=== PATIENT | female | born 1940 | race Caucasian/White ===

== ENCOUNTER 2018-01-16 08:32 | Emergency (ER) | payer OTHER ==
--- OUTSIDE RECORDS SUMMARY | 2018-01-16 08:34 | XMS REPORT ---
:1940 Author Organization [employer] Care Team Providers Name Role Phone Levin, Na Provider Role Unavailable Allergies No Known Allergies Problems Problem Type Condition Code Onset Dates Condition Status Problem Situational insomnia F51.09 Active Problem Abnormal finding of blood R79.9 Active chemistry, unspecified Problem Calculus of kidney N20.0 Active Problem Microalbuminuria R80.9 Active Problem Hypothyroidism E03.9 Active Problem Hypertension I10 Active Problem Hyperlipidemia, unspecified E78.5 Active Problem Gastro-esophageal reflux disease K21.9 Active without esophagitis Problem Vitamin D deficiency E55.9 Active Problem Anemia D64.9 Active Assessment Hypothyroidism E03.9 Active Assessment Hypertension I10 Active Problem Mixed hyperlipidemia E78.2 Active Problem Impacted cerumen, bilateral H61.23 Active Problem Screening mammogram, encounter for Z12.31 Active Problem Screening for osteoporosis Z13.820 Active Problem Essential hypertriglyceridemia E78.1 Active Medications Medication Code Code Instructions Start End Date Status Dosage System Date Amlodipine [facility] 53287936459 5 MG Active TAKE 1 Besylate TABLET DAILY Levothyroxine [facility] 65144168713 75 MCG Active TAKE 1 Sodium TABLET DAILY Results No Known Results Summary Purpose [employer]Works Submission
[2018-01-16] MEDS ORDERED: ACETAMINOPHEN 325 MG TABLET ONE (09:11)
--- NOTE | 2018-01-16 12:26 | RAD REPORT ---
EXAM DESCRIPTION: RAD - Foot Right 3 View - 01/16/2018 10:08 am CLINICAL HISTORY: Persistent foot pain following trauma COMPARISON: None. FINDINGS: Nondisplaced fracture is present at the base of the fifth metatarsal. There is subtle izzy ical irregularity at the base of the first and second metatarsal bones not sufficient for fracture di agnosis. Patient has a pronounced bunion deformity and valgus angulation of the first MTP joint. Mild valgus angulation at the second- fifth MTP joints. There is an underlying degenerative change very m ild in degree in the midfoot. Patient has a small plantar spur. There is calcification of the Henderson s tendon at the attachment. No air or foreign body in the soft tissues. IMPRESSION: Nondisplaced fracture base of the fifth metatarsal. Slight cortical irregularity base of the first and second metatarsal without definitive fracture. Any fracture at these locations would likely be treated in the course of a fifth metatarsal fracture anish atment.
--- NOTE | 2018-01-16 12:27 | RAD REPORT ---
EXAM DESCRIPTION: RAD - Ankle Right 3 View - 01/16/2018 10:09 am CLINICAL HISTORY: Persistent foot and ankle pain following trauma COMPARISON: October 2016 FINDINGS: No fracture, dislocation or periosteal reaction. No joint effusion seen. No joint space na rrowing. Soft tissue swelling is present around the ankle joint though the patient has a relative pro minence of the soft tissues as a baseline. Small plantar spur is present. No foreign body. IMPRESSION: No fracture or acute finding. No significant change from the comparison.
--- NOTE | 2018-01-16 12:41 | ER ---
Nurse's Notes [facility] Name: Jose Tang Age: 77 yrs Sex: Female : 1940 Arrival Date: 01/16/2018 Time: 08:34 Bed 20 Private MD: Krystle Levin Diagnosis: Fracture of metatarsal bone(s) Presentation: 01/16 08:55 Presenting complaint: Patient states: c/o R ankle pain after reportedly getting R foot ss caught while doing laundry and fell 5 days ago. Pt reports she has been resting the affected extremity and icing it, however pain and swelling have not improved. Transition of care: patient was not received from another setting of care. Onset of symptoms was January 12, 2018. Risk Assessment: Do you want to hurt yourself or someone else? Patient reports no desire to harm self or others. Initial Sepsis Screen: Does the patient meet any 2 criteria? No. Patient's initial sepsis screen is negative. Does the patient have a suspected source of infection? No. Patient's initial sepsis screen is negative. Care prior to arrival: None. 08:55 Method Of Arrival: Ambulatory ss 08:55 Acuity: ISREAL 4 ss Historical: - Allergies: 09:04 No Known Allergies; ss - PMHx: 09:04 Hyperlipidemia; Hypertension; Hypothyroidism; ss - PSHx: 09:04 Hysterectomy; Appendectomy; Cholecystectomy; ss - Immunization history:: Adult Immunizations up to date. - Social history:: Smoking status: Patient/guardian denies using tobacco. - Ebola Screening: : Patient denies exposure to infectious person Patient denies travel to an Ebola-affected area in the 21 days before illness onset. Screenin:59 Abuse screen: Denies threats or abuse. Nutritional screening: No deficits noted. em Tuberculosis screening: No symptoms or risk factors identified. Fall Risk None identified. Assessment: 09:15 General: Appears in no apparent distress. comfortable, Behavior is calm, cooperative. em Pain: Complains of pain in right foot Pain currently is 6 out of 10 on a pain scale. Neuro: Level of Consciousness is awake, alert, obeys commands, Oriented to person, place, time, situation. Cardiovascular: Capillary refill < 3 seconds Patient's skin is warm and dry. Respiratory: Airway is patent Respiratory effort is even, unlabored, Respiratory pattern is regular, symmetrical. GI: Abdomen is Patient currently denies nausea, vomiting. : No signs and/or symptoms were reported regarding the genitourinary system. EENT: No signs and/or symptoms were reported regarding the EENT system. Derm: Skin is intact, Skin is pink, warm \T\ dry. Musculoskeletal: Range of motion: limited in right ankle Swelling present in right foot. 09:15 Injury Description: mechanical trip. em 09:20 General: The previous assessment is accurate, call light remains within reach. . ss 09:30 Reassessment: The previous assessment is accurate, call light remains within reach. ss 10:05 Reassessment: Patient appears in no apparent distress at this time. Patient and/or em family updated on plan of care and expected duration. Pain level reassessed. Patient is alert, oriented x 3, equal unlabored respirations, skin warm/dry/pink. 10:56 Reassessment: Patient appears in no apparent distress at this time. Patient and/or em family updated on plan of care and expected duration. Pain level reassessed. Patient is alert, oriented x 3, equal unlabored respirations, skin warm/dry/pink. rates pain 3/10 Patient states feeling better. 12:04 Reassessment: Patient appears in no apparent distress at this time. Patient and/or em family updated on plan of care and expected duration. Pain level reassessed. Patient is alert, oriented x 3, equal unlabored respirations, skin warm/dry/pink. Vital Signs: 09:04 BP 139 / 70; Pulse 90; Resp 18; Temp 99.0(TE); Pulse Ox 97% ; Weight 52.16 kg; Height 4 ss ft. 11 in. (149.86 cm); Pain 6/10; 10:30 BP 142 / 71; Pulse 78; Resp 16; Pulse Ox 99% on R/A; Pain 3/10; em 12:34 BP 143 / 81; Pulse 76; Resp 16; Pulse Ox 100% on R/A; Pain 3/10; em 09:04 Body Mass Index 23.23 (52.16 kg, 149.86 cm) ED Course: 08:34 Patient arrived in ED. as 08:34 Krystle Levin MD is Private Physician. as 08:49 [facility] 08:49 Jason Painter MD is Attending Physician. [facility] 09:03 Triage completed. ss 09:04 Arm band placed on right wrist. ss 09:06 Hermelindo Baron LVN is Primary Nurse. em 09:15 Patient has correct armband on for positive identification. Bed in low position. Call em light in reach. Adult w/ patient. 09:59 No provider procedures requiring assistance completed. Patient did not have IV access em during this emergency room visit. 10:09 Foot Right 3 View XRAY In Process Unspecified. EDMS 10:09 Ankle Right 3 View XRAY In Process Unspecified. EDMS 12:40 Terry Regan MD is Referral Physician. m 13:00 Orthoglass splint: Posterior short lleg splint applied on right leg. em Administered Medications: 09:11 Drug: Tylenol 650 mg Route: PO; em 12:24 Follow up: Response: No adverse reaction em Outcome: 12:41 Discharge ordered by MD. m 13:22 Discharged to home via wheelchair. em 13:22 Condition: good 13:22 Discharge instructions given to patient, Instructed on discharge instructions, follow up and referral plans. medication usage, Demonstrated understanding of instructions, follow-up care, medications, Prescriptions given X 1. 13:24 Patient left the ED. em Signatures: Dispatcher [employer] EDMS Reynaldo Ramirez PA PA [facility] Hermelindo Baron LVN LVN em Courtney Giraldo Shelby, RN RN ss
--- NOTE | 2018-01-16 12:41 | EDPHYS ---
Physician Documentation [facility] Name: Jose Tang Age: 77 yrs Sex: Female : 1940 Arrival Date: 01/16/2018 Time: 08:34 Bed 20 Private MD: Krystle Levin ED Physician Jason Painter HPI: 01/16 09:06 This 77 yrs old Female presents to ER via Ambulatory with complaints of Foot jmm Injury. 09:06 The patient presents with an injury, pain. Onset: The symptoms/episode began/occurred jmm acutely, 4 day(s) ago. This is 77 year old female that presents to the ED with right foot pain following a fall which occurred 4 days ago. Patient is concerned due to ongoing pain and swelling to the foot. The patient denies other injury. . Historical: - Allergies: 09:04 No Known Allergies; ss - PMHx: 09:04 Hyperlipidemia; Hypertension; Hypothyroidism; ss - PSHx: 09:04 Hysterectomy; Appendectomy; Cholecystectomy; ss - Immunization history:: Adult Immunizations up to date. - Social history:: Smoking status: Patient/guardian denies using tobacco. - Ebola Screening: : Patient denies exposure to infectious person Patient denies travel to an Ebola-affected area in the 21 days before illness onset. ROS: 09:06 Constitutional: Negative for fever, chills, and weight loss, Cardiovascular: Negative jmm for chest pain, palpitations, and edema, Respiratory: Negative for shortness of breath, cough, wheezing, and pleuritic chest pain, Abdomen/GI: Negative for abdominal pain, nausea, vomiting, diarrhea, and constipation. 09:06 Skin: Negative for injury, rash, and discoloration, Neuro: Negative for headache, weakness, numbness, tingling, and seizure. 09:06 MS/extremity: Positive for pain, swelling. 09:06 All other systems are negative. Exam: 09:06 Head/Face: atraumatic. Cardiovascular: Regular rate and rhythm. No edema appreciated jmm Respiratory: Normal respirations, no respiratory distress appreciated Back: Normal ROM 09:06 Constitutional: The patient appears in no acute distress, alert, awake. 09:06 Musculoskeletal/extremity: swelling noted to the right foot, generalized pain on palpation, full dorsalis pedis pulse appreciated. . 09:06 Skin: Appearance: Color: normal in color. 09:06 Neuro: Orientation: is normal, Mentation: is normal, Memory: is normal. 09:06 Psych: Behavior/mood is pleasant, cooperative. Vital Signs: 09:04 BP 139 / 70; Pulse 90; Resp 18; Temp 99.0(TE); Pulse Ox 97% ; Weight 52.16 kg; Height 4 ss ft. 11 in. (149.86 cm); Pain 6/10; 10:30 BP 142 / 71; Pulse 78; Resp 16; Pulse Ox 99% on R/A; Pain 3/10; em 12:34 BP 143 / 81; Pulse 76; Resp 16; Pulse Ox 100% on R/A; Pain 3/10; em 09:04 Body Mass Index 23.23 (52.16 kg, 149.86 cm) ss Procedures: 12:05 Splinting: Splint applied to right ankle and right foot using posterior splint. applied jmm by tech. nurse. Examined by me, post splint application: neurovascular intact, 2+ distal pulses palpable, Patient tolerated well. MDM: 08:51 Patient medically screened. [facility] 11:07 Data reviewed: vital signs, nurses notes. [facility] 12:19 Counseling: I had a detailed discussion with the patient and/or guardian regarding: the [facility] historical points, exam findings, and any diagnostic results supporting the discharge/admit diagnosis, the need for outpatient follow up, to return to the emergency department if symptoms worsen or persist or if there are any questions or concerns that arise at home. 12:37 ED course: Patient advised to not bear weight on the affected foot and given follow up [facility] with orthopedics. . 01/16 09:04 Order name: Foot Right 3 View XRAY; Complete Time: 12:37 [facility] 01/16 09:04 Order name: Ankle Right 3 View XRAY; Complete Time: 12:37 [facility] 01/16 12:03 Order name: Splint - Ankle: Posterior; Complete Time: 13:15 [facility] Administered Medications: 09:11 Drug: Tylenol 650 mg Route: PO; em 12:24 Follow up: Response: No adverse reaction em Disposition: 01/17 06:41 Co-signature as Attending Physician, Jason Painter MD I agree with the assessment and romel plan of care. Disposition: 01/16/18 12:41 Discharged to Home. Impression: Fracture of metatarsal bone(s). - Condition is Stable. - Discharge Instructions: Metatarsal Fracture, Undisplaced. - Prescriptions for Tylenol- Codeine #3 300-30 mg Oral Tablet - take 1 tablet by ORAL route every 6 hours As needed; 12 tablet. - Medication Reconciliation Form, Thank You Letter, Antibiotic Education, Prescription Opioid Use form. - Follow up: Terry Regan MD; When: 1 - 2 days; Reason: Continuance of care. Signatures: Dispatcher [employer] EDJason Sims MD MD cha Mickail, Joel, PA PA Hermelindo Sewell, OUTSIDE OPERATOR OUTSIDE OPERATOR em Karoline Hernandez RN RN ss Corrections: (The following items were deleted from the chart) 01/16 13:15 12:03 Crutches ordered. britton tejada 13:24 12:41 01/16/2018 12:41 Discharged to Home. Impression: Fracture of metatarsal bone(s). em Condition is Stable. Forms are Medication Reconciliation Form, Thank You Letter, Antibiotic Education, Prescription Opioid Use. Follow up: Terry Regan; When: 1 - 2 days; Reason: Continuance of care. britton
== END 2018-01-16 13:24 | disposition home or self-care (01) ==
LOC: ER 08:32
PROC: 2W3QX1Z Immobilization of Right Lower Leg using Splint (ICD-10-PCS; principal; 2018-01-16)
DX: S92.301A Fracture of unspecified metatarsal bone(s), right foot, initial encounter for closed fracture (principal); W18.39XA Other fall on same level, initial encounter; Y93.89 Activity, other specified; Y92.018 Other place in single-family (private) house as the place of occurrence of the external cause; E78.5 Hyperlipidemia, unspecified; I10 Essential (primary) hypertension; E03.9 Hypothyroidism, unspecified
CPT/HCPCS: 99284

== ENCOUNTER → 2023-07-24 | Emergency (ER) | payer OTHER ==
[~2023-07-24] MED LIST: LABETALOL 20 MG/4ML SYRINGE IV ONE; LIDOCAINE 4% PATCH ONE; NA CHLORIDE 0.9% 0 ML ONE; NICARDIPINE HCL 25 MG/10 ML IV ONE; methocarbamoL 500 MG TAB ONE
--- OUTSIDE RECORDS SUMMARY | 2023-07-24 10:46 | XMS REPORT | Continuity of Care Document ---
Author Name Unknown Address [address] [facility] [place] [address] [facility]connect Address [address] [facility] [address] [place] [address] Care Team Providers Care Check Out Clerk Name Role Phone Tao Baltazar Attending Clinician Unavailable Krystle Levin Attending Clinician Unavailable Payers Payer Name Policy Type Policy Number Effective Date Expirati on Date Source [employer] MEDICARE PPO 53 [id number] 2021 00:00:00 [facility] A[employer] MEDICARE PPO 111 [id number] [facility] Problems Condition Name Condition Details Condition Category Status Onset Date Resolution Date Last Treatment Date Treating Clinician Comments Source [id number] Gastroesop hageal reflux disease, unspecifie d whether esophagiti s present Problem [facility] [id number] 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 Problem [facility] Anemia Anemia Problem [facility] Pure hyperglyce ridemia Essential hypertrigl yceridemia Problem [facility] Hypothyroi dism Hypothyroi dism Problem [facility] Vitamin D deficiency Vitamin D deficiency Problem [facility] Hypertensi on White coat syndrome with diagnosis of hypertensi on Problem [facility] Microalbum inuria Microalbum inuria Problem [facility] Gastro-eso phageal reflux disease without esophagiti s Gastro-eso phageal reflux disease without esophagiti s Problem [facility] [id number] Screening mammogram, encounter for Problem [facility] Blood chemistry abnormal Abnormal finding of blood chemistry, unspecifie d Problem [facility] Transient insomnia Situationa l insomnia Problem [facility] [id number] Stage 3b chronic kidney disease Problem [facility] [id number] Rotator cuff arthropath y of right shoulder Problem [facility] [id number] +5th digit eff 04/05/20*CK D (chronic kidney disease), stage III Problem [facility] [id number] Age related osteoporos is, unspecifie d pathologic al fracture presence Problem [facility] [id number] Age-relate d osteoporos is without current pathologic al fracture Problem [facility] Hyperlipid emia Hyperlipid emia, unspecifie d Problem [facility] [id number] Mixed hyperlipid emia Problem [facility] [id number] PAD (periphera l artery disease) Problem [facility] Calculus of kidney Bilateral nephrolith iasis Problem [facility] [id number] Impacted cerumen, bilateral Problem [facility] Screening for osteoporos is Screening for osteoporos is Problem [facility] [id number] Microscopi c hematuria Problem [facility] 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, 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 Problem [facility] [id number] Unsteady gait Problem [facility] [id number] Osteoarthr itis of multiple joints, unspecifie d osteoarthr itis type Problem [facility] Allergies, Adverse Reactions, Alerts Allergy Name Allergy Type Status Severity Reaction(s) Onset Date Inactive Date Treating Clinician Comments Source fluconaz ole fluconaz ole Active rash [facility] Social History Social Habit Start Date Stop Date Quantity Comments Source History of Tobacco Use [facility] Sex Assigned At [facility] Smoking Status Start Date Stop Date Source Never Smoker [facility] Medications Ordered Medication Name Filled Medication Name Start Date Stop Date Current Medication? Ordering Clinician Indication Dosage Frequency Signature (SIG) Comments Components Source Benzonatate 100 MG Benzonatate 100 MG 2020-07 00:00: 00 06-29 00:00 :00 No 1{capsu le_as_n eeded} BID Benzonatat e 100 MG Benzonatate 100 MG Benzonatate 100 MG 2020-07 00:00: 00 06-17 00:00 :00 No 1{capsu le_as_n eeded} TID Benzonatat e 100 MG Levothyroxi ne Sodium Levothyroxi ne Sodium 2017-07 00:00: 00 Yes Na Levin 1 tablet on an empty stomach in the morning [facility] Levothyroxi ne Sodium Levothyroxi ne Sodium Yes Na Levin 1 tablet on an empty stomach in the morning [facility] Lunesta Lunesta Yes Na Levin 1 tablet immediatel y before bedtime [facility] Fish Oil Fish Oil Yes Na Levin 1 capsule [facility] Amlodipine Besylate Amlodipine Besylate Yes Na Levin 1 tablet [facility] Fluconazole Fluconazole Yes Na Levin 1 tablet [facility] Esomeprazol e Magnesium Esomeprazol e Magnesium Yes Na Levin 1 capsule Co mmon [facility] Azithromyci n Azithromyci n Yes Na Levin 2 tablets on the first day, then 1 tablet daily for 4 days [facility] Losartan Potassium Losartan Potassium Yes Na Levin 1 tablet Commo n [facility] Gemfibrozil Gemfibrozil Yes Na Levin TAKE 1 TABLET TWICE DAILY [facility] Amlodipine Besylate Amlodipine Besylate Yes Na Levin TAKE 1 TABLET DAILY [facility] Ergocalcife rol Ergocalcife rol Yes Na Levin 1 tablet [facility] Fosamax Fosamax Yes Na Levin 1 tablet [facility] amLODIPine Besylate 5 MG amLODIPine Besylate 5 MG No QD amLODIPine Besylate 5 MG Fluconazole 150 MG Fluconazole 150 MG No 1{table t} Fluconazol e 150 MG Fluconazole 150 MG Fluconazole 150 MG No 1{table t} Fluconazol e 150 MG Tylenol 325 MG Tylenol 325 MG No 1{table t_as_ne eded} QID Tylenol 325 MG Fish Oil 1000 MG Fish Oil 1000 MG No 1{capsu le} QD Fish Oil 1000 MG Losartan Potassium 25 MG Losartan Potassium 25 MG No 1{table t} QD Losartan Potassium 25 MG Vitamin D3 50 MCG (1999) Vitamin D3 50 MCG (1999) No 1{table t} QD Vitamin D3 50 MCG (1999) Levothyroxi ne Sodium 88 MCG Levothyroxi ne Sodium 88 MCG No Levothyrox ine Sodium 88 MCG Esomeprazol e Magnesium 40 MG Esomeprazol e Magnesium 40 MG No 1{capsu le} QD Esomeprazo le Magnesium 40 MG Licorice (Glycyrrhiz a glabra) 450 MG Licorice (Glycyrrhiz a glabra) 450 MG No BID Licorice (Glycyrrhi za glabra) 450 MG amLODIPine Besylate 5 MG amLODIPine Besylate 5 MG No amLODIPine Besylate 5 MG Esomeprazol e Magnesium 40 MG Esomeprazol e Magnesium 40 MG No 1{capsu le} QD Esomeprazo le Magnesium 40 MG Lunesta 1 MG Lunesta 1 MG No 1{table t_immed iately_ before_ bedtime } QD Lunesta 1 MG Fish Oil 1000 MG Fish Oil 1000 MG No 1{capsu le} QD Fish Oil 1000 MG Azithromyci n 250 MG Azithromyci n 250 MG No QD Azithromyc in 250 MG Fish Oil 1000 MG Fish Oil 1000 MG No 1{capsu le} QD Fish Oil 1000 MG amLODIPine Besylate 5 MG amLODIPine Besylate 5 MG No amLODIPine Besylate 5 MG Alendronate Sodium 70 MG Alendronate Sodium 70 MG No Alendronat e Sodium 70 MG Levothyroxi ne Sodium 88 MCG Levothyroxi ne Sodium 88 MCG No Levothyrox ine Sodium 88 MCG Tylenol 325 MG Tylenol 325 MG No 1{table t_as_ne eded} QID Tylenol 325 MG Gemfibrozil 600 MG Gemfibrozil 600 MG No BID Gemfibrozi l 600 MG Fosamax 70 MG Fosamax 70 MG No 1{table t} Fosamax 70 MG Lunesta 1 MG Lunesta 1 MG No 1{table t_immed iately_ before_ bedtime } QD Lunesta 1 MG Fish Oil 1000 MG Fish Oil 1000 MG No 1{capsu le} QD Fish Oil 1000 MG Fluconazole 150 MG Fluconazole 150 MG No 1{table t} Fluconazol e 150 MG Losartan Potassium 25 MG Losartan Potassium 25 MG No 1{table t} QD Losartan Potassium 25 MG Levothyroxi ne Sodium 75 MCG Levothyroxi ne Sodium 75 MCG No QD Levothyrox ine Sodium 75 MCG Esomeprazol e Magnesium 40 MG Esomeprazol e Magnesium 40 MG No 1{capsu le} QD Esomeprazo le Magnesium 40 MG Esomeprazol e Magnesium 40 MG Esomeprazol e Magnesium 40 MG No 1{capsu le} QD Esomeprazo le Magnesium 40 MG Lunesta 1 MG Lunesta 1 MG No 1{table t_immed iately_ before_ bedtime } QD Lunesta 1 MG Azithromyci n 250 MG Azithromyci n 250 MG No QD Azithromyc in 250 MG Levothyroxi ne Sodium 88 MCG Levothyroxi ne Sodium 88 MCG No QD Levothyrox ine Sodium 88 MCG Licorice (Glycyrrhiz a glabra) 450 MG Licorice (Glycyrrhiz a glabra) 450 MG No BID Licorice (Glycyrrhi za glabra) 450 MG Ergocalcife rol 2000 UNIT Ergocalcife rol 2000 UNIT No 1{table t} QD Ergocalcif [place] 2000 UNIT Fluconazole 150 MG Fluconazole 150 MG No 1{table t} Fluconazol e 150 MG Vitamin D3 50 MCG (1999) Vitamin D3 50 MCG (1999) No 1{table t} QD Vitamin D3 50 MCG (1999) amLODIPine Besylate 5 MG amLODIPine Besylate 5 MG No QD amLODIPine Besylate 5 MG Fish Oil 1000 MG Fish Oil 1000 MG No 1{capsu le} QD Fish Oil 1000 MG amLODIPine Besylate 5 MG amLODIPine Besylate 5 MG No amLODIPine Besylate 5 MG Alendronate Sodium 70 MG Alendronate Sodium 70 MG No Alendronat e Sodium 70 MG Levothyroxi ne Sodium 88 MCG Levothyroxi ne Sodium 88 MCG No Levothyrox ine Sodium 88 MCG Tylenol 325 MG Tylenol 325 MG No 1{table t_as_ne eded} QID Tylenol 325 MG Gemfibrozil 600 MG Gemfibrozil 600 MG No BID Gemfibrozi l 600 MG Fosamax 70 MG Fosamax 70 MG No 1{table t} Fosamax 70 MG Lunesta 1 MG Lunesta 1 MG No 1{table t_immed iately_ before_ bedtime } QD Lunesta 1 MG Fish Oil 1000 MG Fish Oil 1000 MG No 1{capsu le} QD Fish Oil 1000 MG Fluconazole 150 MG Fluconazole 150 MG No 1{table t} Fluconazol e 150 MG Fluconazole 150 MG Fluconazole 150 MG No 1{table t} Fluconazol e 150 MG Losartan Potassium 25 MG Losartan Potassium 25 MG No 1{table t} QD Losartan Potassium 25 MG Levothyroxi ne Sodium 75 MCG Levothyroxi ne Sodium 75 MCG No QD Levothyrox ine Sodium 75 MCG Esomeprazol e Magnesium 40 MG Esomeprazol e Magnesium 40 MG No 1{capsu le} QD Esomeprazo le Magnesium 40 MG Esomeprazol e Magnesium 40 MG Esomeprazol e Magnesium 40 MG No 1{capsu le} QD Esomeprazo le Magnesium 40 MG Lunesta 1 MG Lunesta 1 MG No 1{table t_immed iately_ before_ bedtime } QD Lunesta 1 MG Azithromyci n 250 MG Azithromyci n 250 MG No QD Azithromyc in 250 MG Levothyroxi ne Sodium 88 MCG Levothyroxi ne Sodium 88 MCG No QD Levothyrox ine Sodium 88 MCG Licorice (Glycyrrhiz a glabra) 450 MG Licorice (Glycyrrhiz a glabra) 450 MG No BID Licorice (Glycyrrhi za glabra) 450 MG Ergocalcife rol 2000 UNIT Ergocalcife rol 2000 UNIT No 1{table t} QD Ergocalcif [place] 2000 UNIT Vitamin D3 50 MCG (1999 [place]) Vitamin D3 50 MCG (1999 [place]) No 1{table t} QD Vitamin D3 50 MCG (1999) amLODIPine Besylate 5 MG amLODIPine Besylate 5 MG No QD amLODIPine Besylate 5 MG Gemfibrozil 600 MG Gemfibrozil 600 MG No BID Gemfibrozi l 600 MG Fish Oil 1000 MG Fish Oil 1000 MG No 1{capsu le} QD Fish Oil 1000 MG Lunesta 1 MG Lunesta 1 MG No 1{table t_immed iately_ before_ bedtime } QD Lunesta 1 MG Levothyroxi ne Sodium 75 MCG Levothyroxi ne Sodium 75 MCG No QD Levothyrox ine Sodium 75 MCG Levothyroxi ne Sodium 88 MCG Levothyroxi ne Sodium 88 MCG No Levothyrox ine Sodium 88 MCG Esomeprazol e Magnesium 40 MG Esomeprazol e Magnesium 40 MG No 1{capsu le} QD Esomeprazo le Magnesium 40 MG Licorice (Glycyrrhiz a glabra) 450 MG Licorice (Glycyrrhiz a glabra) 450 MG No BID Licorice (Glycyrrhi za glabra) 450 MG Fluconazole 150 MG Fluconazole 150 MG No 1{table t} Fluconazol e 150 MG Fosamax 70 MG Fosamax 70 MG No 1{table t} Fosamax 70 MG Fish Oil 1000 MG Fish Oil 1000 MG No 1{capsu le} QD Fish Oil 1000 MG Levothyroxi ne Sodium 88 MCG Levothyroxi ne Sodium 88 MCG No QD Levothyrox ine Sodium 88 MCG Losartan Potassium 25 MG Losartan Potassium 25 MG No 1{table t} QD Losartan Potassium 25 MG Vitamin D3 50 MCG (1999) Vitamin D3 50 MCG (1999 [place]) No 1{table t} QD Vitamin D3 50 MCG (1999) amLODIPine Besylate 5 MG amLODIPine Besylate 5 MG No QD amLODIPine Besylate 5 MG Ergocalcife rol 2000 UNIT Ergocalcife rol 2000 UNIT No 1{table t} QD Ergocalcif [place] 2000 UNIT Tylenol 325 MG Tylenol 325 MG No 1{table t_as_ne eded} QID Tylenol 325 MG Esomeprazol e Magnesium 40 MG Esomeprazol e Magnesium 40 MG No 1{capsu le} QD Esomeprazo le Magnesium 40 MG Lunesta 1 MG Lunesta 1 MG No 1{table t_immed iately_ before_ bedtime } QD Lunesta 1 MG Alendronate Sodium 70 MG Alendronate Sodium 70 MG No Alendronat e Sodium 70 MG Fluconazole 150 MG Fluconazole 150 MG No 1{table t} Fluconazol e 150 MG Azithromyci n 250 MG Azithromyci n 250 MG No QD Azithromyc in 250 MG amLODIPine Besylate 5 MG amLODIPine Besylate 5 MG No amLODIPine Besylate 5 MG Fosamax 70 MG Fosamax 70 MG No 1{table t} Fosamax 70 MG Losartan Potassium 25 MG Losartan Potassium 25 MG No 1{table t} QD Losartan Potassium 25 MG Licorice (Glycyrrhiz a glabra) 450 MG Licorice (Glycyrrhiz a glabra) 450 MG No BID Licorice (Glycyrrhi za glabra) 450 MG Azithromyci n 250 MG Azithromyci n 250 MG No QD Azithromyc in 250 MG Fluconazole 150 MG Fluconazole 150 MG No 1{table t} Fluconazol e 150 MG amLODIPine Besylate 5 MG amLODIPine Besylate 5 MG No amLODIPine Besylate 5 MG Fish Oil 1000 MG Fish Oil 1000 MG No 1{capsu le} QD Fish Oil 1000 MG Lunesta 1 MG Lunesta 1 MG No 1{table t_immed iately_ before_ bedtime } QD Lunesta 1 MG Esomeprazol e Magnesium 40 MG Esomeprazol e Magnesium 40 MG No 1{capsu le} QD Esomeprazo le Magnesium 40 MG Alendronate Sodium 70 MG Alendronate Sodium 70 MG No Alendronat e Sodium 70 MG Ergocalcife rol 2000 UNIT Ergocalcife rol 2000 UNIT No 1{table t} QD Ergocalcif [place] 2000 UNIT Fish Oil 1000 MG Fish Oil 1000 MG No 1{capsu le} QD Fish Oil 1000 MG Fluconazole 150 MG Fluconazole 150 MG No 1{table t} Fluconazol e 150 MG Lunesta 1 MG Lunesta 1 MG No 1{table t_immed iately_ before_ bedtime } QD Lunesta 1 MG Esomeprazol e Magnesium 40 MG Esomeprazol e Magnesium 40 MG No 1{capsu le} QD Esomeprazo le Magnesium 40 MG Levothyroxi ne Sodium 75 MCG Levothyroxi ne Sodium 75 MCG No QD Levothyrox ine Sodium 75 MCG Gemfibrozil 600 MG Gemfibrozil 600 MG No BID Gemfibrozi l 600 MG Tylenol 325 MG Tylenol 325 MG No 1{table t_as_ne eded} QID Tylenol 325 MG Levothyroxi ne Sodium 88 MCG Levothyroxi ne Sodium 88 MCG No Levothyrox ine Sodium 88 MCG Levothyroxi ne Sodium 88 MCG Levothyroxi ne Sodium 88 MCG No QD Levothyrox ine Sodium 88 MCG Vitamin D3 50 MCG (1999) Vitamin D3 50 MCG (1999) No 1{table t} QD Vitamin D3 50 MCG (1999) Fosamax 70 MG Fosamax 70 MG No 1{table t} Fosamax 70 MG Losartan Potassium 25 MG Losartan Potassium 25 MG No 1{table t} QD Losartan Potassium 25 MG Licorice (Glycyrrhiz a glabra) 450 MG Licorice (Glycyrrhiz a glabra) 450 MG No BID Licorice (Glycyrrhi za glabra) 450 MG Azithromyci n 250 MG Azithromyci n 250 MG No QD Azithromyc in 250 MG Fluconazole 150 MG Fluconazole 150 MG No 1{table t} Fluconazol e 150 MG amLODIPine Besylate 5 MG amLODIPine Besylate 5 MG No amLODIPine Besylate 5 MG Fish Oil 1000 MG Fish Oil 1000 MG No 1{capsu le} QD Fish Oil 1000 MG Lunesta 1 MG Lunesta 1 MG No 1{table t_immed iately_ before_ bedtime } QD Lunesta 1 MG Esomeprazol e Magnesium 40 MG Esomeprazol e Magnesium 40 MG No 1{capsu le} QD Esomeprazo le Magnesium 40 MG Alendronate Sodium 70 MG Alendronate Sodium 70 MG No Alendronat e Sodium 70 MG Ergocalcife rol 2000 UNIT Ergocalcife rol 2000 UNIT No 1{table t} QD Ergocalcif [place] 2000 UNIT Fish Oil 1000 MG Fish Oil 1000 MG No 1{capsu le} QD Fish Oil 1000 MG Fluconazole 150 MG Fluconazole 150 MG No 1{table t} Fluconazol e 150 MG Lunesta 1 MG Lunesta 1 MG No 1{table t_immed iately_ before_ bedtime } QD Lunesta 1 MG Esomeprazol e Magnesium 40 MG Esomeprazol e Magnesium 40 MG No 1{capsu le} QD Esomeprazo le Magnesium 40 MG Levothyroxi ne Sodium 75 MCG Levothyroxi ne Sodium 75 MCG No QD Levothyrox ine Sodium 75 MCG Gemfibrozil 600 MG Gemfibrozil 600 MG No BID Gemfibrozi l 600 MG Tylenol 325 MG Tylenol 325 MG No 1{table t_as_ne eded} QID Tylenol 325 MG Levothyroxi ne Sodium 88 MCG Levothyroxi ne Sodium 88 MCG No Levothyrox ine Sodium 88 MCG Levothyroxi ne Sodium 88 MCG Levothyroxi ne Sodium 88 MCG No QD Levothyrox ine Sodium 88 MCG Vitamin D3 50 MCG (1999) Vitamin D3 50 MCG (1999) No 1{table t} QD Vitamin D3 50 MCG (1999) Tylenol 325 MG Tylenol 325 MG No 2{table t_as_ne eded} QID Tylenol 325 MG amLODIPine Besylate 5 MG amLODIPine Besylate 5 MG No QD amLODIPine Besylate 5 MG Fish Oil 1000 MG Fish Oil 1000 MG No 1{capsu le} QD Fish Oil 1000 MG Ergocalcife rol 2000 UNIT Ergocalcife rol 2000 UNIT No 1{table t} QD Ergocalcif [place] 2000 UNIT Fish Oil 1000 MG Fish Oil 1000 MG No 1{capsu le} QD Fish Oil 1000 MG Licorice (Glycyrrhiz a glabra) 450 MG Licorice (Glycyrrhiz a glabra) 450 MG No BID Licorice (Glycyrrhi za glabra) 450 MG Levothyroxi ne Sodium 88 MCG Levothyroxi ne Sodium 88 MCG No Levothyrox ine Sodium 88 MCG Losartan Potassium 25 MG Losartan Potassium 25 MG No 1{table t} QD Losartan Potassium 25 MG Azithromyci n 250 MG Azithromyci n 250 MG No QD Azithromyc in 250 MG amLODIPine Besylate 5 MG amLODIPine Besylate 5 MG No amLODIPine Besylate 5 MG Melatonin 1 MG Melatonin 1 MG No 1{capsu le_at_b edtime_ as_need ed} QD Melatonin 1 MG Gemfibrozil 600 MG Gemfibrozil 600 MG No BID Gemfibrozi l 600 MG Lunesta 1 MG Lunesta 1 MG No 1{table t_immed iately_ before_ bedtime } QD Lunesta 1 MG Alendronate Sodium 70 MG Alendronate Sodium 70 MG No Alendronat e Sodium 70 MG Lunesta 1 MG Lunesta 1 MG No 1{table t_immed iately_ before_ bedtime } QD Lunesta 1 MG Fosamax 70 MG Fosamax 70 MG No 1{table t} Fosamax 70 MG Esomeprazol e Magnesium 40 MG Esomeprazol e Magnesium 40 MG No 1{capsu le} QD Esomeprazo le Magnesium 40 MG Vitamin D3 50 MCG (1999) Vitamin D3 50 MCG (1999) No 1{table t} QD Vitamin D3 50 MCG (1999) Esomeprazol e Magnesium 40 MG Esomeprazol e Magnesium 40 MG No 1{capsu le} QD Esomeprazo le Magnesium 40 MG Levothyroxi ne Sodium 75 MCG Levothyroxi ne Sodium 75 MCG No QD Levothyrox ine Sodium 75 MCG Levothyroxi ne Sodium 88 MCG Levothyroxi ne Sodium 88 MCG No QD Levothyrox ine Sodium 88 MCG Fluconazole 150 MG Fluconazole 150 MG No 1{table t} Fluconazol e 150 MG Fluconazole 150 MG Fluconazole 150 MG No 1{table t} Fluconazol e 150 MG Tylenol 325 MG Tylenol 325 MG No 2{table t_as_ne eded} QID Tylenol 325 MG amLODIPine Besylate 5 MG amLODIPine Besylate 5 MG No QD amLODIPine Besylate 5 MG Fish Oil 1000 MG Fish Oil 1000 MG No 1{capsu le} QD Fish Oil 1000 MG Ergocalcife rol 2000 UNIT Ergocalcife rol 2000 UNIT No 1{table t} QD Ergocalcif [place] 2000 UNIT Fish Oil 1000 MG Fish Oil 1000 MG No 1{capsu le} QD Fish Oil 1000 MG Licorice (Glycyrrhiz a glabra) 450 MG Licorice (Glycyrrhiz a glabra) 450 MG No BID Licorice (Glycyrrhi za glabra) 450 MG Levothyroxi ne Sodium 88 MCG Levothyroxi ne Sodium 88 MCG No Levothyrox ine Sodium 88 MCG Losartan Potassium 25 MG Losartan Potassium 25 MG No 1{table t} QD Losartan Potassium 25 MG Azithromyci n 250 MG Azithromyci n 250 MG No QD Azithromyc in 250 MG amLODIPine Besylate 5 MG amLODIPine Besylate 5 MG No amLODIPine Besylate 5 MG Melatonin 1 MG Melatonin 1 MG No 1{capsu le_at_b edtime_ as_need ed} QD Melatonin 1 MG Gemfibrozil 600 MG Gemfibrozil 600 MG No BID Gemfibrozi l 600 MG Lunesta 1 MG Lunesta 1 MG No 1{table t_immed iately_ before_ bedtime } QD Lunesta 1 MG Alendronate Sodium 70 MG Alendronate Sodium 70 MG No Alendronat e Sodium 70 MG Lunesta 1 MG Lunesta 1 MG No 1{table t_immed iately_ before_ bedtime } QD Lunesta 1 MG Fosamax 70 MG Fosamax 70 MG No 1{table t} Fosamax 70 MG Esomeprazol e Magnesium 40 MG Esomeprazol e Magnesium 40 MG No 1{capsu le} QD Esomeprazo le Magnesium 40 MG Vitamin D3 50 MCG (1999) Vitamin D3 50 MCG (1999) No 1{table t} QD Vitamin D3 50 MCG (1999) Esomeprazol e Magnesium 40 MG Esomeprazol e Magnesium 40 MG No 1{capsu le} QD Esomeprazo le Magnesium 40 MG Levothyroxi ne Sodium 75 MCG Levothyroxi ne Sodium 75 MCG No QD Levothyrox ine Sodium 75 MCG Levothyroxi ne Sodium 88 MCG Levothyroxi ne Sodium 88 MCG No QD Levothyrox ine Sodium 88 MCG Fluconazole 150 MG Fluconazole 150 MG No 1{table t} Fluconazol e 150 MG Fluconazole 150 MG Fluconazole 150 MG No 1{table t} Fluconazol e 150 MG Azithromyci n 250 MG Azithromyci n 250 MG No QD Azithromyc in 250 MG Losartan Potassium 25 MG Losartan Potassium 25 MG No 1{table t} QD Losartan Potassium 25 MG Melatonin 1 MG Melatonin 1 MG No 1{capsu le_at_b edtime_ as_need ed} QD Melatonin 1 MG Esomeprazol e Magnesium 40 MG Esomeprazol e Magnesium 40 MG No 1{capsu le} QD Esomeprazo le Magnesium 40 MG amLODIPine Besylate 5 MG amLODIPine Besylate 5 MG No amLODIPine Besylate 5 MG Fosamax 70 MG Fosamax 70 MG No 1{table t} Fosamax 70 MG Levothyroxi ne Sodium 75 MCG Levothyroxi ne Sodium 75 MCG No QD Levothyrox ine Sodium 75 MCG Alendronate Sodium 70 MG Alendronate Sodium 70 MG No Alendronat e Sodium 70 MG Vitamin D3 50 MCG (1999) Vitamin D3 50 MCG (1999) No 1{table t} QD Vitamin D3 50 MCG (1999) Ergocalcife rol 2000 UNIT Ergocalcife rol 2000 UNIT No 1{table t} QD Ergocalcif [place] 2000 UNIT Levothyroxi ne Sodium 88 MCG Levothyroxi ne Sodium 88 MCG No QD Levothyrox ine Sodium 88 MCG Licorice (Glycyrrhiz a glabra) 450 MG Licorice (Glycyrrhiz a glabra) 450 MG No BID Licorice (Glycyrrhi za glabra) 450 MG Fish Oil 1000 MG Fish Oil 1000 MG No 1{capsu le} QD Fish Oil 1000 MG Lunesta 1 MG Lunesta 1 MG No 1{table t_immed iately_ before_ bedtime } QD Lunesta 1 MG amLODIPine Besylate 5 MG amLODIPine Besylate 5 MG No QD amLODIPine Besylate 5 MG Levothyroxi ne Sodium 88 MCG Levothyroxi ne Sodium 88 MCG No Levothyrox ine Sodium 88 MCG Gemfibrozil 600 MG Gemfibrozil 600 MG No BID Gemfibrozi l 600 MG Esomeprazol e Magnesium 40 MG Esomeprazol e Magnesium 40 MG No 1{capsu le} QD Esomeprazo le Magnesium 40 MG Fish Oil 1000 MG Fish Oil 1000 MG No 1{capsu le} QD Fish Oil 1000 MG Fluconazole 150 MG Fluconazole 150 MG No 1{table t} Fluconazol e 150 MG Fluconazole 150 MG Fluconazole 150 MG No 1{table t} Fluconazol e 150 MG Lunesta 1 MG Lunesta 1 MG No 1{table t_immed iately_ before_ bedtime } QD Lunesta 1 MG Tylenol 325 MG Tylenol 325 MG No 2{table t_as_ne eded} QID Tylenol 325 MG Azithromyci n 250 MG Azithromyci n 250 MG No QD Azithromyc in 250 MG Losartan Potassium 25 MG Losartan Potassium 25 MG No 1{table t} QD Losartan Potassium 25 MG Melatonin 1 MG Melatonin 1 MG No 1{capsu le_at_b edtime_ as_need ed} QD Melatonin 1 MG Esomeprazol e Magnesium 40 MG Esomeprazol e Magnesium 40 MG No 1{capsu le} QD Esomeprazo le Magnesium 40 MG amLODIPine Besylate 5 MG amLODIPine Besylate 5 MG No amLODIPine Besylate 5 MG Fosamax 70 MG Fosamax 70 MG No 1{table t} Fosamax 70 MG Levothyroxi ne Sodium 75 MCG Levothyroxi ne Sodium 75 MCG No QD Levothyrox ine Sodium 75 MCG Alendronate Sodium 70 MG Alendronate Sodium 70 MG No Alendronat e Sodium 70 MG Vitamin D3 50 MCG (1999) Vitamin D3 50 MCG (1999) No 1{table t} QD Vitamin D3 50 MCG (1999) Ergocalcife rol 2000 UNIT Ergocalcife rol 2000 UNIT No 1{table t} QD Ergocalcif [place] 2000 UNIT Levothyroxi ne Sodium 88 MCG Levothyroxi ne Sodium 88 MCG No QD Levothyrox ine Sodium 88 MCG Licorice (Glycyrrhiz a glabra) 450 MG Licorice (Glycyrrhiz a glabra) 450 MG No BID Licorice (Glycyrrhi za glabra) 450 MG Fish Oil 1000 MG Fish Oil 1000 MG No 1{capsu le} QD Fish Oil 1000 MG Lunesta 1 MG Lunesta 1 MG No 1{table t_immed iately_ before_ bedtime } QD Lunesta 1 MG amLODIPine Besylate 5 MG amLODIPine Besylate 5 MG No QD amLODIPine Besylate 5 MG Levothyroxi ne Sodium 88 MCG Levothyroxi ne Sodium 88 MCG No Levothyrox ine Sodium 88 MCG Gemfibrozil 600 MG Gemfibrozil 600 MG No BID Gemfibrozi l 600 MG Esomeprazol e Magnesium 40 MG Esomeprazol e Magnesium 40 MG No 1{capsu le} QD Esomeprazo le Magnesium 40 MG Fish Oil 1000 MG Fish Oil 1000 MG No 1{capsu le} QD Fish Oil 1000 MG Fluconazole 150 MG Fluconazole 150 MG No 1{table t} Fluconazol e 150 MG Fluconazole 150 MG Fluconazole 150 MG No 1{table t} Fluconazol e 150 MG Lunesta 1 MG Lunesta 1 MG No 1{table t_immed iately_ before_ bedtime } QD Lunesta 1 MG Tylenol 325 MG Tylenol 325 MG No 2{table t_as_ne eded} QID Tylenol 325 MG Azithromyci n 250 MG Azithromyci n 250 MG No QD Azithromyc in 250 MG Levothyroxi ne Sodium 88 MCG Levothyroxi ne Sodium 88 MCG No Levothyrox ine Sodium 88 MCG Esomeprazol e Magnesium 40 MG Esomeprazol e Magnesium 40 MG No 1{capsu le} QD Esomeprazo le Magnesium 40 MG Fish Oil 1000 MG Fish Oil 1000 MG No 1{capsu le} QD Fish Oil 1000 MG Fosamax 70 MG Fosamax 70 MG No 1{table t} Fosamax 70 MG Lunesta 1 MG Lunesta 1 MG No 1{table t_immed iately_ before_ bedtime } QD Lunesta 1 MG Alendronate Sodium 70 MG Alendronate Sodium 70 MG No Alendronat e Sodium 70 MG Ergocalcife rol 2000 UNIT Ergocalcife rol 2000 UNIT No 1{table t} QD Ergocalcif louis 2000 UNIT Levothyroxi ne Sodium 75 MCG Levothyroxi ne Sodium 75 MCG No QD Levothyrox ine Sodium 75 MCG Vitamin D3 50 MCG (1999) Vitamin D3 50 MCG (1999) No 1{table t} QD Vitamin D3 50 MCG (1999) Esomeprazol e Magnesium 40 MG Esomeprazol e Magnesium 40 MG No 1{capsu le} QD Esomeprazo le Magnesium 40 MG Licorice (Glycyrrhiz a glabra) 450 MG Licorice (Glycyrrhiz a glabra) 450 MG No BID Licorice (Glycyrrhi za glabra) 450 MG Lunesta 1 MG Lunesta 1 MG No 1{table t_immed iately_ before_ bedtime } QD Lunesta 1 MG Tylenol 325 MG Tylenol 325 MG No 2{table t_as_ne eded} QID Tylenol 325 MG Fluconazole 150 MG Fluconazole 150 MG No 1{table t} Fluconazol e 150 MG amLODIPine Besylate 5 MG amLODIPine Besylate 5 MG No amLODIPine Besylate 5 MG amLODIPine Besylate 5 MG amLODIPine Besylate 5 MG No QD amLODIPine Besylate 5 MG Fish Oil 1000 MG Fish Oil 1000 MG No 1{capsu le} QD Fish Oil 1000 MG Melatonin 1 MG Melatonin 1 MG No 1{capsu le_at_b edtime_ as_need ed} QD Melatonin 1 MG Fluconazole 150 MG Fluconazole 150 MG No 1{table t} Fluconazol e 150 MG Gemfibrozil 600 MG Gemfibrozil 600 MG No BID Gemfibrozi l 600 MG Losartan Potassium 25 MG Losartan Potassium 25 MG No 1{table t} QD Losartan Potassium 25 MG Fosamax 70 MG Fosamax 70 MG No 1{table t} Fosamax 70 MG Azithromyci n 250 MG Azithromyci n 250 MG No QD Azithromyc in 250 MG Alendronate Sodium 70 MG Alendronate Sodium 70 MG No Alendronat e Sodium 70 MG Licorice (Glycyrrhiz a glabra) 450 MG Licorice (Glycyrrhiz a glabra) 450 MG No BID Licorice (Glycyrrhi za glabra) 450 MG Esomeprazol e Magnesium 40 MG Esomeprazol e Magnesium 40 MG No 1{capsu le} QD Esomeprazo le Magnesium 40 MG Lunesta 1 MG Lunesta 1 MG No 1{table t_immed iately_ before_ bedtime } QD Lunesta 1 MG Fish Oil 1000 MG Fish Oil 1000 MG No 1{capsu le} QD Fish Oil 1000 MG Ergocalcife rol 2000 UNIT Ergocalcife rol 2000 UNIT No 1{table t} QD Ergocalcif louis 2000 UNIT Levothyroxi ne Sodium 75 MCG Levothyroxi ne Sodium 75 MCG No QD Levothyrox ine Sodium 75 MCG Vitamin D3 50 MCG (1999) Vitamin D3 50 MCG (1999) No 1{table t} QD Vitamin D3 50 MCG (1999) Tylenol 325 MG Tylenol 325 MG No 2{table t_as_ne eded} QID Tylenol 325 MG Esomeprazol e Magnesium 40 MG Esomeprazol e Magnesium 40 MG No 1{capsu le} QD Esomeprazo le Magnesium 40 MG Lunesta 1 MG Lunesta 1 MG No 1{table t_immed iately_ before_ bedtime } QD Lunesta 1 MG amLODIPine Besylate 5 MG amLODIPine Besylate 5 MG No amLODIPine Besylate 5 MG Melatonin 1 MG Melatonin 1 MG No 1{capsu le_at_b edtime_ as_need ed} QD Melatonin 1 MG Fish Oil 1000 MG Fish Oil 1000 MG No 1{capsu le} QD Fish Oil 1000 MG Losartan Potassium 25 MG Losartan Potassium 25 MG No 1{table t} QD Losartan Potassium 25 MG Fluconazole 150 MG Fluconazole 150 MG No 1{table t} Fluconazol e 150 MG Fluconazole 150 MG Fluconazole 150 MG No 1{table t} Fluconazol e 150 MG Gemfibrozil 600 MG Gemfibrozil 600 MG No BID Gemfibrozi l 600 MG Levothyroxi ne Sodium 88 MCG Levothyroxi ne Sodium 88 MCG No Levothyrox ine Sodium 88 MCG Levothyroxi ne Sodium 88 MCG Levothyroxi ne Sodium 88 MCG No QD Levothyrox ine Sodium 88 MCG Sodium Bicarbonate 650 MG Sodium Bicarbonate 650 MG No Sodium Bicarbonat e 650 MG Fish Oil 1000 MG Fish Oil 1000 MG No 1{capsu le} QD Fish Oil 1000 MG Vitamin D3 50 MCG (1999) Vitamin D3 50 MCG (1999) No 1{table t} QD Vitamin D3 50 MCG (1999) Ezetimibe 10 MG Ezetimibe 10 MG No Ezetimibe 10 MG amLODIPine Besylate 5 MG amLODIPine Besylate 5 MG No amLODIPine Besylate 5 MG amLODIPine Besylate 5 MG amLODIPine Besylate 5 MG No 1{table t} QD amLODIPine Besylate 5 MG Esomeprazol e Magnesium 40 MG Esomeprazol e Magnesium 40 MG No 1{capsu le} QD Esomeprazo le Magnesium 40 MG Levothyroxi ne Sodium 50 MCG Levothyroxi ne Sodium 50 MCG No QD Levothyrox ine Sodium 50 MCG Levothyroxi ne Sodium 88 MCG Levothyroxi ne Sodium 88 MCG No QD Levothyrox ine Sodium 88 MCG Sodium Bicarbonate 650 MG Sodium Bicarbonate 650 MG No Sodium Bicarbonat e 650 MG Fish Oil 1000 MG Fish Oil 1000 MG No 1{capsu le} QD Fish Oil 1000 MG Vitamin D3 50 MCG (1999) Vitamin D3 50 MCG (1999) No 1{table t} QD Vitamin D3 50 MCG (1999) Ezetimibe 10 MG Ezetimibe 10 MG No Ezetimibe 10 MG amLODIPine Besylate 5 MG amLODIPine Besylate 5 MG No amLODIPine Besylate 5 MG amLODIPine Besylate 5 MG amLODIPine Besylate 5 MG No 1{table t} QD amLODIPine Besylate 5 MG Esomeprazol e Magnesium 40 MG Esomeprazol e Magnesium 40 MG No 1{capsu le} QD Esomeprazo le Magnesium 40 MG Levothyroxi ne Sodium 50 MCG Levothyroxi ne Sodium 50 MCG No QD Levothyrox ine Sodium 50 MCG Levothyroxi ne Sodium 88 MCG Levothyroxi ne Sodium 88 MCG No QD Levothyrox ine Sodium 88 MCG Sodium Bicarbonate 650 MG Sodium Bicarbonate 650 MG No Sodium Bicarbonat e 650 MG Fish Oil 1000 MG Fish Oil 1000 MG No 1{capsu le} QD Fish Oil 1000 MG Vitamin D3 50 MCG (1999) Vitamin D3 50 MCG (1999) No 1{table t} QD Vitamin D3 50 MCG (1999) Ezetimibe 10 MG Ezetimibe 10 MG No Ezetimibe 10 MG amLODIPine Besylate 5 MG amLODIPine Besylate 5 MG No amLODIPine Besylate 5 MG amLODIPine Besylate 5 MG amLODIPine Besylate 5 MG No 1{table t} QD amLODIPine Besylate 5 MG Esomeprazol e Magnesium 40 MG Esomeprazol e Magnesium 40 MG No 1{capsu le} QD Esomeprazo le Magnesium 40 MG Levothyroxi ne Sodium 50 MCG Levothyroxi ne Sodium 50 MCG No QD Levothyrox ine Sodium 50 MCG Levothyroxi ne Sodium 88 MCG Levothyroxi ne Sodium 88 MCG No QD Levothyrox ine Sodium 88 MCG Sodium Bicarbonate 650 MG Sodium Bicarbonate 650 MG No Sodium Bicarbonat e 650 MG Fish Oil 1000 MG Fish Oil 1000 MG No 1{capsu le} QD Fish Oil 1000 MG Vitamin D3 50 MCG (1999) Vitamin D3 50 MCG (1999) No 1{table t} QD Vitamin D3 50 MCG (1999) Ezetimibe 10 MG Ezetimibe 10 MG No Ezetimibe 10 MG amLODIPine Besylate 5 MG amLODIPine Besylate 5 MG No amLODIPine Besylate 5 MG amLODIPine Besylate 5 MG amLODIPine Besylate 5 MG No 1{table t} QD amLODIPine Besylate 5 MG Esomeprazol e Magnesium 40 MG Esomeprazol e Magnesium 40 MG No 1{capsu le} QD Esomeprazo le Magnesium 40 MG Levothyroxi ne Sodium 50 MCG Levothyroxi ne Sodium 50 MCG No QD Levothyrox ine Sodium 50 MCG Levothyroxi ne Sodium 88 MCG Levothyroxi ne Sodium 88 MCG No QD Levothyrox ine Sodium 88 MCG Sodium Bicarbonate 650 MG Sodium Bicarbonate 650 MG No Sodium Bicarbonat e 650 MG Fish Oil 1000 MG Fish Oil 1000 MG No 1{capsu le} QD Fish Oil 1000 MG Vitamin D3 50 MCG (1999) Vitamin D3 50 MCG (1999) No 1{table t} QD Vitamin D3 50 MCG (1999) Ezetimibe 10 MG Ezetimibe 10 MG No Ezetimibe 10 MG amLODIPine Besylate 5 MG amLODIPine Besylate 5 MG No amLODIPine Besylate 5 MG amLODIPine Besylate 5 MG amLODIPine Besylate 5 MG No 1{table t} QD amLODIPine Besylate 5 MG Esomeprazol e Magnesium 40 MG Esomeprazol e Magnesium 40 MG No 1{capsu le} QD Esomeprazo le Magnesium 40 MG Levothyroxi ne Sodium 50 MCG Levothyroxi ne Sodium 50 MCG No QD Levothyrox ine Sodium 50 MCG Sodium Bicarbonate 650 MG Sodium Bicarbonate 650 MG No Sodium Bicarbonat e 650 MG Ezetimibe 10 MG Ezetimibe 10 MG No Ezetimibe 10 MG Vitamin D3 50 MCG (1999) Vitamin D3 50 MCG (1999) No 1{table t} QD Vitamin D3 50 MCG (1999) Levothyroxi ne Sodium 88 MCG Levothyroxi ne Sodium 88 MCG No QD Levothyrox ine Sodium 88 MCG Levothyroxi ne Sodium 50 MCG Levothyroxi ne Sodium 50 MCG No QD Levothyrox ine Sodium 50 MCG Esomeprazol e Magnesium 40 MG Esomeprazol e Magnesium 40 MG No 1{capsu le} QD Esomeprazo le Magnesium 40 MG Fish Oil 1000 MG Fish Oil 1000 MG No 1{capsu le} QD Fish Oil 1000 MG amLODIPine Besylate 5 MG amLODIPine Besylate 5 MG No amLODIPine Besylate 5 MG amLODIPine Besylate 5 MG amLODIPine Besylate 5 MG No 1{table t} QD amLODIPine Besylate 5 MG Sodium Bicarbonate 650 MG Sodium Bicarbonate 650 MG No Sodium Bicarbonat e 650 MG Ezetimibe 10 MG Ezetimibe 10 MG No Ezetimibe 10 MG Vitamin D3 50 MCG (1999) Vitamin D3 50 MCG (1999) No 1{table t} QD Vitamin D3 50 MCG (1999) Levothyroxi ne Sodium 88 MCG Levothyroxi ne Sodium 88 MCG No QD Levothyrox ine Sodium 88 MCG Levothyroxi ne Sodium 50 MCG Levothyroxi ne Sodium 50 MCG No QD Levothyrox ine Sodium 50 MCG Esomeprazol e Magnesium 40 MG Esomeprazol e Magnesium 40 MG No 1{capsu le} QD Esomeprazo le Magnesium 40 MG Fish Oil 1000 MG Fish Oil 1000 MG No 1{capsu le} QD Fish Oil 1000 MG amLODIPine Besylate 5 MG amLODIPine Besylate 5 MG No amLODIPine Besylate 5 MG amLODIPine Besylate 5 MG amLODIPine Besylate 5 MG No 1{table t} QD amLODIPine Besylate 5 MG Sodium Bicarbonate 650 MG Sodium Bicarbonate 650 MG No Sodium Bicarbonat e 650 MG Ezetimibe 10 MG Ezetimibe 10 MG No Ezetimibe 10 MG Vitamin D3 50 MCG (1999) Vitamin D3 50 MCG (1999) No 1{table t} QD Vitamin D3 50 MCG (1999) Levothyroxi ne Sodium 88 MCG Levothyroxi ne Sodium 88 MCG No QD Levothyrox ine Sodium 88 MCG Levothyroxi ne Sodium 50 MCG Levothyroxi ne Sodium 50 MCG No QD Levothyrox ine Sodium 50 MCG Esomeprazol e Magnesium 40 MG Esomeprazol e Magnesium 40 MG No 1{capsu le} QD Esomeprazo le Magnesium 40 MG Fish Oil 1000 MG Fish Oil 1000 MG No 1{capsu le} QD Fish Oil 1000 MG amLODIPine Besylate 5 MG amLODIPine Besylate 5 MG No amLODIPine Besylate 5 MG amLODIPine Besylate 5 MG amLODIPine Besylate 5 MG No 1{table t} QD amLODIPine Besylate 5 MG Sodium Bicarbonate 650 MG Sodium Bicarbonate 650 MG No Sodium Bicarbonat e 650 MG Levothyroxi ne Sodium 50 MCG Levothyroxi ne Sodium 50 MCG No QD Levothyrox ine Sodium 50 MCG Vitamin D3 50 MCG (1999) Vitamin D3 50 MCG (1999) No 1{table t} QD Vitamin D3 50 MCG (1999) Ezetimibe 10 MG Ezetimibe 10 MG No Ezetimibe 10 MG Esomeprazol e Magnesium 40 MG Esomeprazol e Magnesium 40 MG No 1{capsu le} QD Esomeprazo le Magnesium 40 MG Fish Oil 1000 MG Fish Oil 1000 MG No 1{capsu le} QD Fish Oil 1000 MG amLODIPine Besylate 5 MG amLODIPine Besylate 5 MG No amLODIPine Besylate 5 MG Levothyroxi ne Sodium 88 MCG Levothyroxi ne Sodium 88 MCG No Levothyrox ine Sodium 88 MCG Sodium Bicarbonate 650 MG Sodium Bicarbonate 650 MG No Sodium Bicarbonat e 650 MG Levothyroxi ne Sodium 50 MCG Levothyroxi ne Sodium 50 MCG No QD Levothyrox ine Sodium 50 MCG Vitamin D3 50 MCG (1999) Vitamin D3 50 MCG (1999) No 1{table t} QD Vitamin D3 50 MCG (1999) Ezetimibe 10 MG Ezetimibe 10 MG No Ezetimibe 10 MG Esomeprazol e Magnesium 40 MG Esomeprazol e Magnesium 40 MG No 1{capsu le} QD Esomeprazo le Magnesium 40 MG Fish Oil 1000 MG Fish Oil 1000 MG No 1{capsu le} QD Fish Oil 1000 MG amLODIPine Besylate 5 MG amLODIPine Besylate 5 MG No amLODIPine Besylate 5 MG Levothyroxi ne Sodium 88 MCG Levothyroxi ne Sodium 88 MCG No Levothyrox ine Sodium 88 MCG Sodium Bicarbonate 650 MG Sodium Bicarbonate 650 MG No Sodium Bicarbonat e 650 MG Ezetimibe 10 MG Ezetimibe 10 MG No Ezetimibe 10 MG Vitamin D3 50 MCG (1999) Vitamin D3 50 MCG (1999) No 1{table t} QD Vitamin D3 50 MCG (1999) Levothyroxi ne Sodium 88 MCG Levothyroxi ne Sodium 88 MCG No Levothyrox ine Sodium 88 MCG Lunesta 1 MG Lunesta 1 MG No 1{table t_immed iately_ before_ bedtime } QD Lunesta 1 MG Esomeprazol e Magnesium 40 MG Esomeprazol e Magnesium 40 MG No 1{capsu le} QD Esomeprazo le Magnesium 40 MG Fish Oil 1000 MG Fish Oil 1000 MG No 1{capsu le} QD Fish Oil 1000 MG amLODIPine Besylate 5 MG amLODIPine Besylate 5 MG No amLODIPine Besylate 5 MG Levothyroxi ne Sodium 50 MCG Levothyroxi ne Sodium 50 MCG No Levothyrox ine Sodium 50 MCG Levothyroxi ne Sodium 75 MCG Levothyroxi ne Sodium 75 MCG No QD Levothyrox ine Sodium 75 MCG Ergocalcife rol 2000 UNIT Ergocalcife rol 2000 UNIT No 1{table t} QD Ergocalcif [place] 2000 UNIT Fosamax 70 MG Fosamax 70 MG No 1{table t} Fosamax 70 MG Levothyroxi ne Sodium 88 MCG Levothyroxi ne Sodium 88 MCG No QD Levothyrox ine Sodium 88 MCG Gemfibrozil 600 MG Gemfibrozil 600 MG No BID Gemfibrozi l 600 MG Alendronate Sodium 70 MG Alendronate Sodium 70 MG No Alendronat e Sodium 70 MG amLODIPine Besylate 5 MG amLODIPine Besylate 5 MG No QD amLODIPine Besylate 5 MG Fluconazole 150 MG Fluconazole 150 MG No 1{table t} Fluconazol e 150 MG Fluconazole 150 MG Fluconazole 150 MG No 1{table t} Fluconazol e 150 MG Tylenol 325 MG Tylenol 325 MG No 1{table t_as_ne eded} QID Tylenol 325 MG Fish Oil 1000 MG Fish Oil 1000 MG No 1{capsu le} QD Fish Oil 1000 MG Losartan Potassium 25 MG Losartan Potassium 25 MG No 1{table t} QD Losartan Potassium 25 MG Vitamin D3 50 MCG (1999) Vitamin D3 50 MCG (1999) No 1{table t} QD Vitamin D3 50 MCG (1999) Levothyroxi ne Sodium 88 MCG Levothyroxi ne Sodium 88 MCG No Levothyrox ine Sodium 88 MCG Esomeprazol e Magnesium 40 MG Esomeprazol e Magnesium 40 MG No 1{capsu le} QD Esomeprazo le Magnesium 40 MG Licorice (Glycyrrhiz a glabra) 450 MG Licorice (Glycyrrhiz a glabra) 450 MG No BID Licorice (Glycyrrhi za glabra) 450 MG amLODIPine Besylate 5 MG amLODIPine Besylate 5 MG No amLODIPine Besylate 5 MG Esomeprazol e Magnesium 40 MG Esomeprazol e Magnesium 40 MG No 1{capsu le} QD Esomeprazo le Magnesium 40 MG Lunesta 1 MG Lunesta 1 MG No 1{table t_immed iately_ before_ bedtime } QD Lunesta 1 MG Fish Oil 1000 MG Fish Oil 1000 MG No 1{capsu le} QD Fish Oil 1000 MG Azithromyci n 250 MG Azithromyci n 250 MG No QD Azithromyc in 250 MG Lunesta 1 MG Lunesta 1 MG No 1{table t_immed iately_ before_ bedtime } QD Lunesta 1 MG Levothyroxi ne Sodium 75 MCG Levothyroxi ne Sodium 75 MCG No QD Levothyrox ine Sodium 75 MCG Ergocalcife rol 2000 UNIT Ergocalcife rol 2000 UNIT No 1{table t} QD Ergocalcif [place] 2000 UNIT Fosamax 70 MG Fosamax 70 MG No 1{table t} Fosamax 70 MG Levothyroxi ne Sodium 88 MCG Levothyroxi ne Sodium 88 MCG No QD Levothyrox ine Sodium 88 MCG Gemfibrozil 600 MG Gemfibrozil 600 MG No BID Gemfibrozi l 600 MG Alendronate Sodium 70 MG Alendronate Sodium 70 MG No Alendronat e Sodium 70 MG Immunizations Ordered Immunization Name Filled Immunization Name Date Status Comments Source COVID-19 Vaccine (Serg) COVID-19 Vaccine (Serg) 2021-03-18 13:14:00 Completed [facility] COVID-19 Vaccine (Serg) COVID-19 Vaccine (Serg) 2021-03-18 13:14:00 Completed [facility] COVID-19 Vaccine (Serg) COVID-19 Vaccine (Serg) 2021-03-18 13:14:00 Completed [facility] COVID-19 Vaccine (Serg) COVID-19 Vaccine (Serg) 2021-03-18 13:14:00 Completed [facility] COVID-19 Vaccine (Serg) COVID-19 Vaccine (Serg) 2021-03-18 13:14:00 Completed [facility] COVID-19 Vaccine (Serg) COVID-19 Vaccine (Serg) 2021-03-18 13:14:00 Completed [facility] COVID-19 Vaccine (Serg) COVID-19 Vaccine (Serg) 2021-03-18 13:14:00 Completed [facility] COVID-19 Vaccine (Serg) COVID-19 Vaccine (Serg) 2021-03-18 13:14:00 Completed [facility] COVID-19 Vaccine (Serg) COVID-19 Vaccine (Serg) 2021-03-18 13:14:00 Completed [facility] COVID-19 Vaccine (Serg) COVID-19 Vaccine (Serg) 2021-03-18 13:14:00 Completed [facility] COVID-19 Vaccine (Serg) COVID-19 Vaccine (Serg) 2021-03-18 13:14:00 Completed [facility] COVID-19 Vaccine (Serg) COVID-19 Vaccine (Serg) 2021-03-18 13:14:00 Completed [facility] COVID-19 Vaccine (Serg) COVID-19 Vaccine (Serg) 2021-03-18 13:14:00 Completed [facility] COVID-19 Vaccine (Serg) COVID-19 Vaccine (Serg) Unknown Completed [facility] COVID-19 Vaccine (Serg) COVID-19 Vaccine (Serg) Unknown Completed [facility] COVID-19 Vaccine (Serg) COVID-19 Vaccine (Serg) Unknown Completed [facility] COVID-19 Vaccine (Serg) COVID-19 Vaccine (Serg) Unknown Completed [facility] COVID-19 Vaccine (Serg) COVID-19 Vaccine (Serg) Unknown Completed [facility] COVID-19 Vaccine (Serg) COVID-19 Vaccine (Serg) Unknown Completed [facility] COVID-19 Vaccine (Serg) COVID-19 Vaccine (Serg) Unknown Completed [facility] COVID-19 Vaccine (Serg) COVID-19 Vaccine (Serg) Unknown Completed [facility] COVID-19 Vaccine (Serg) COVID-19 Vaccine (Serg) Unknown Completed [facility] COVID-19 Vaccine (Serg) COVID-19 Vaccine (Serg) Unknown Completed [facility] COVID-19 Vaccine (Serg) COVID-19 Vaccine (Serg) Unknown Completed [facility] Vital Signs Vital Name Observation Time Observation Value Comments Dusty huddleston height 2023-04-16 14:10:00 61 [in_i] Commo n [facility] weight 2023-04-16 14:10:00 117.0 [lb_av] Co [facility] temperature 2023-04-16 14:10:00 98.1 [degF] Com [facility] bmi 2023-04-16 14:10:00 22.1 kg/m2 Commo n [facility] oximetry 2023-04-16 14:10:00 98 % Commo n [facility] respiratory rate 2023-04-16 14:10:00 18 /min [facility] blood pressure systolic 2023-04-16 14:10:00 126 mm[Hg] Common [facility] blood pressure diastolic 2023-04-16 14:10:00 73 mm[Hg] Common [facility] height 2023-04-16 14:10:00 61 [in_i] Commo n [facility] weight 2023-04-16 14:10:00 117.0 [lb_av] Co [facility] temperature 2023-04-16 14:10:00 98.1 [degF] Com [facility] bmi 2023-04-16 14:10:00 22.1 kg/m2 Commo n [facility] oximetry 2023-04-16 14:10:00 98 % Commo n [facility] respiratory rate 2023-04-16 14:10:00 18 /min Common [facility] blood pressure systolic 2023-04-16 14:10:00 126 mm[Hg] Common [facility] blood pressure diastolic 2023-04-16 14:10:00 73 mm[Hg] [facility] height 2022-12-29 09:15:00 61 [in_i] Commo n [facility] weight 2022-12-29 09:15:00 116 [lb_av] Comm on [facility] temperature 2022-12-29 09:15:00 98.4 [degF] Com mon [facility] bmi 2022-12-29 09:15:00 21.92 kg/m2 Comm on [facility] blood pressure systolic 2022-12-29 09:15:00 126 mm[Hg] Common [facility] blood pressure diastolic 2022-12-29 09:15:00 82 mm[Hg] Common [facility] height 2022-10-23 08:30:00 61 [in_i] Commo n [facility] weight 2022-10-23 08:30:00 116 [lb_av] Comm on [facility] temperature 2022-10-23 08:30:00 97.9 [degF] Com mon [facility] bmi 2022-10-23 08:30:00 21.92 kg/m2 Comm on [facility] blood pressure systolic 2022-10-23 08:30:00 126 mm[Hg] [facility] blood pressure diastolic 2022-10-23 08:30:00 82 mm[Hg] Common [facility] height 2022-10-14 13:40:00 60.00 [in_i] Com mon [facility] weight 2022-10-14 13:40:00 118.5 [lb_av] Co mmon [facility] temperature 2022-10-14 13:40:00 97.2 [degF] Com mon [facility] bmi 2022-10-14 13:40:00 23.14 kg/m2 Comm on [facility] oximetry 2022-10-14 13:40:00 99 % Commo n [facility] respiratory rate 2022-10-14 13:40:00 16 /min Common [facility] blood pressure systolic 2022-10-14 13:40:00 138 mm[Hg] Common [facility] blood pressure diastolic 2022-10-14 13:40:00 78 mm[Hg] Common [facility] height 2022-04-17 09:00:00 62.00 [in_i] Com [facility] weight 2022-04-17 09:00:00 119.6 [lb_av] Co mmon [facility] temperature 2022-04-17 09:00:00 97.3 [degF] Com [facility] bmi 2022-04-17 09:00:00 21.87 kg/m2 Comm on [facility] oximetry 2022-04-17 09:00:00 98 % Commo n [facility] respiratory rate 2022-04-17 09:00:00 16 /min [facility] blood pressure systolic 2022-04-17 09:00:00 136 mm[Hg] Common [facility] blood pressure diastolic 2022-04-17 09:00:00 82 mm[Hg] [facility] height 2022-04-17 09:00:00 60.00 [in_i] Com [facility] weight 2022-04-17 09:00:00 119.6 [lb_av] Co mmon [facility] temperature 2022-04-17 09:00:00 97.3 [degF] Com [facility] bmi 2022-04-17 09:00:00 23.36 kg/m2 Comm on [facility] oximetry 2022-04-17 09:00:00 98 % Commo n [facility] respiratory rate 2022-04-17 09:00:00 16 /min [facility] blood pressure systolic 2022-04-17 09:00:00 136 mm[Hg] Common [facility] blood pressure diastolic 2022-04-17 09:00:00 82 mm[Hg] Common [facility] height 2021-10-15 13:00:00 62.00 [in_i] Com [facility] weight 2021-10-15 13:00:00 122.4 [lb_av] Co [facility] temperature 2021-10-15 13:00:00 97.6 [degF] Com [facility] bmi 2021-10-15 13:00:00 22.13 kg/m2 Comm on [facility] oximetry 2021-10-15 13:00:00 98 % Commo n [facility] respiratory rate 2021-10-15 13:00:00 18 /min Common [facility] blood pressure systolic 2021-10-15 13:00:00 128 mm[Hg] Common [facility] blood pressure diastolic 2021-10-15 13:00:00 72 mm[Hg] Common [facility] height 2021-04-15 13:00:00 62.00 [in_i] Com [facility] weight 2021-04-15 13:00:00 123.8 [lb_av] Co [facility] temperature 2021-04-15 13:00:00 96.9 [degF] Com [facility] bmi 2021-04-15 13:00:00 22.64 kg/m2 Comm on [facility] oximetry 2021-04-15 13:00:00 99 % Commo n [facility] respiratory rate 2021-04-15 13:00:00 18 /min Common [facility] blood pressure systolic 2021-04-15 13:00:00 120 mm[Hg] Common [facility] blood pressure diastolic 2021-04-15 13:00:00 80 mm[Hg] Common [facility] Encounters Start Date/Time End Date/Time Encounter Type Admission Type Attending [facility] Care Department Encounter ID Source 2023-07-17 13:34:00 Outpatient Baltazar, Tao STLMLC ST[facility] [id number] [facility] 2023-05-21 13:52:00 Outpatient Baltazar, Tao STLMLC ST[facility] [id number] [facility] 2022-12-29 14:35:00 Outpatient Baltazar, Tao STLMLC ST[facility] [id number] [facility] 2022-11-04 15:56:00 Outpatient Baltazar, Tao STLMLC ST[facility] [id number] [facility] 2022-10-23 11:57:01 Outpatient BALTAZAR, TAO STLMLC STLMLC [id number] [facility] 2022-10-22 14:39:00 Outpatient BALTAZAR, TAO STLMLC ST[facility]C [id number] [facility] 2022-08-14 10:42:00 Outpatient BALTAZAR, TAO STLMLC STLMLC [id number] [facility] 2021-10-15 13:43:00 Outpatient Levin, Na STLMLC STLMLC [id number] [facility] 2021-07-31 13:58:26 Outpatient Levin, Na STLMLC STLMLC [id number] [facility] 2021-07-31 11:51:05 Outpatient Levin, Na STLMLC STLMLC [id number] [facility] 2021-07-31 11:50:38 Outpatient Levin, Na STLMLC STLMLC [id number] [facility] 2021-07-31 11:49:58 Outpatient Levin, Na STLMLC STLMLC [id number] [facility] [facility] 2021-07-31 11:16:09 Outpatient Levin, Na STLMLC STLMLC [id number] [facility] 2023-04-27 00:00:00 2023-04-27 00:00:00 (TEL) STLMLC STLMLC [id number] [facility] 2023-04-16 00:00:00 2023-04-16 00:00:00 OFFICE VISIT ESTAB PT LEVEL 4 STLMLC STLMLC [id number] [facility] 2023-04-16 00:00:00 2023-04-16 00:00:00 SUB ANNUAL [facility] WELLNESS VISIT STLMLC STLMLC [id number] [facility] 2023-01-08 00:00:00 2023-01-08 00:00:00 (TEL) STLMLC STLMLC [id number] [facility] 2022-12-29 00:00:00 2022-12-29 00:00:00 OFFICE VISIT ESTAB PT LEVEL 4 STLMLC STLMLC [id number] [facility] 2022-12-12 00:00:00 2022-12-12 00:00:00 (TEL) STLMLC STLMLC [id number] [facility] 2022-10-23 00:00:00 2022-10-23 00:00:00 OFFICE VISIT NEW PT LEVEL 3 STLMLC STLMLC [id number] [facility] 2022-10-21 00:00:00 2022-10-21 00:00:00 (TEL) STLMLC STLMLC [id number] [facility] 2022-10-14 00:00:00 2022-10-14 00:00:00 OFFICE VISIT ESTAB PT LEVEL 4 STLMLC STLMLC [id number] [facility] 2022-09-22 00:00:00 2022-09-22 00:00:00 (TEL) STLMLC STLMLC [id number] [facility] 2022-09-16 00:00:00 2022-09-16 00:00:00 (TEL) STLMLC STLMLC [id number] [facility] 2022-08-12 00:00:00 2022-08-12 00:00:00 (TEL) STLMLC STLMLC [id number] [facility] 2022-04-24 00:00:00 2022-04-24 00:00:00 (TEL) STLMLC STLMLC [id number] [facility] 2022-04-17 00:00:00 2022-04-17 00:00:00 SUB ANNUAL MCR WELLNESS VISIT STLMLC STLMLC [id number] [facility] 2022-04-17 00:00:00 2022-04-17 00:00:00 OFFICE VISIT EST PT LEVEL 3 STLMLC STLMLC [id number] [facility] 2021-10-24 00:00:00 2021-10-24 00:00:00 (TEL) STLMLC STLMLC [id number] [facility] 2021-10-15 00:00:00 2021-10-15 00:00:00 OFFICE VISIT EST PT LEVEL 3 STLMLC STLMLC [id number] [facility] 2021-09-03 00:00:00 2021-09-03 00:00:00 (TEL) STLMLC STLMLC [id number] [facility] 2021-08-27 00:00:00 2021-08-27 00:00:00 (TEL) STLMLC STLMLC [id number] [facility] 2021-06-26 00:00:00 2021-06-26 00:00:00 (TEL) STLMLC STLMLC [id number] [facility] 2021-06-17 00:00:00 2021-06-17 00:00:00 (TEL) STLMLC STLMLC [id number] [facility] 2021-06-07 00:00:00 2021-06-07 00:00:00 (TEL) STLMLC STLMLC [id number] [facility] 2021-04-25 00:00:00 2021-04-25 00:00:00 (TEL) STLMLC STLMLC [id number] [facility] 2021-04-15 00:00:00 2021-04-15 00:00:00 OFFICE VISIT EST PT LEVEL 3 STLMLC STLMLC [id number] [facility] 2020-10-17 00:00:00 2020-10-17 00:00:00 Outpatient STLMLC STLMLC [id number] [facility] 2020-10-09 00:00:00 2020-10-09 00:00:00 Outpatient STLMLC STLMLC [id number] [facility] 2020-10-09 00:00:00 2020-10-09 00:00:00 Outpatient STLMLC STLMLC [id number] [facility] 2020-05-16 00:00:00 2020-05-16 00:00:00 Outpatient STLMLC STLMLC [id number] [facility] 2020-05-02 00:00:00 2020-05-02 00:00:00 Outpatient STLMLC STLMLC [id number] [facility] 2020-04-05 00:00:00 2020-04-05 00:00:00 Outpatient STLMLC STLMLC [id number] [facility] 2019-10-14 09:48:00 2019-10-14 09:48:[address] [facility] [id number] [facility] 2019-10-06 13:00:00 2019-10-06 13:00:00 [facility] [id number] [facility] 2019-04-16 17:07:00 2019-04-16 17:07:00 [facility] [id number] [facility] 2019-03-22 13:00:00 2019-03-22 13:00:00 [facility] [id number] [facility] 2019-02-25 15:38:00 2019-02-25 15:38:[address] [facility] [address] [facility] [id number] [facility] 2018-10-08 11:42:00 2018-10-08 11:42:00 [facility] [address] [facility] [id number] [facility] 2018-08-18 15:00:00 2018-08-18 15:00:00 [facility] [address] [facility] [id number] [facility] 2018-05-24 14:00:00 2018-05-24 14:00:00 [facility] [address] [facility] [id number] [facility] 2017-12-29 11:21:00 2017-12-29 11:21:00 [facility] [address] [facility] [id number] [facility] 2017-11-16 14:00:00 2017-11-16 14:00:00 [facility] [facility] [id number] [facility]
--- NOTE | 2023-07-24 12:26 | RAD REPORT ---
EXAM DESCRIPTION: CTSpine Lumbar Wo Con07/24/2023 11:18 am CLINICAL HISTORY: Back pain/radiculopathy. Fall COMPARISON: None TECHNIQUE: Computed axial tomography lumbar spine was obtained with coronal and sagittal reconstruct ion. All CT scans are performed using dose optimization technique as appropriate and may include automated exposure control or mA/KV adjustment according to patient size. FINDINGS: No fracture noted. No dislocation. Mild posterior subluxation of L2 on L3. No high-grade central/foraminal stenosis seen. The patient has a known abdominal aortic aneurysm. It is only partially included in the field of view . The visualized portion measures at least 5 centimeters in AP diameter. A Schmorl's node invaginating into the superior vertebral endplate of L1 IMPRESSION: Negative for a lumbar fracture. No high-grade central/foraminal stenosis visualized. Abdominal aortic aneurysm only partially included in the field of view. It measures at least 5 centim eters AP diameter. It is recommended that patient have a CT abdomen for complete characterization of the aneurysm. The exam was discussed with Dr. Avery 12:20 p.m. July 24, 2023
[2023-07-24 15:22] LABS: Absolute Lymphocytes (CBC) 1.9 K/uL (0.7-4.9); Hematocrit 26.4 % (36.0-45.0); Lymphocytes % 25.8 % (15.3-44.8); MCV 81.7 fL (80-100); MPV 7.7 fL (7.6-11.3); Platelets 309 thou/uL (152-406); RBC Red Blood Cell Count 3.23 M/uL (3.86-4.86)
[2023-07-24 15:27] LABS: Potassium 3.6 mEq/L (3.5-5.1)
[2023-07-24 15:44] LABS: Blood Morphology Comment NOT SEEN (NOT SEEN); Platelet Estimate ADEQ; White Blood Cell Scan OK (OK)
--- NOTE | 2023-07-24 16:31 | RAD REPORT ---
EXAM DESCRIPTION: CT - Angio Aorta For Dissection - 07/24/2023 3:46 pm CLINICAL HISTORY: abd aortic aneurysm COMPARISON: Spine Lumbar Wo Con dated 07/24/2023; Stone Protocol dated 12/31/2018 TECHNIQUE: Thin axial CT images of the chest, abdomen, and pelvis were obtained during administratio n of 95mL Isovue 370 IV contrast. Sagittal and coronal reconstructions as well as maximal intensity p rojection reconstruction were generated and reviewed per an aortic angiography protocol. All CT scans are performed using dose optimization technique as appropriate and may include automated exposure control or mA/KV adjustment according to patient size. FINDINGS: Thoracic aorta is unremarkable. Abdominal aorta shows a fusiform aneurysmal dilation, star ting above the level of the renal arteries. Aneurysm sac measures 6.2 x 5.0 cm in greatest axial dime nsions. On the CT scan of the abdomen of 12/31/2013, aneurysm sac measured up to 3.5 cm in greatest c aliber. Mural thrombus anteriorly with narrowest luminal diameter approximately at the same level tiffany suring 3.9 x 1.9 cm. Dissecting contrast into the mural thrombus along the mid aspect of the aneurysm sac. Additional selina centic radiodensities extending more caudally and to the right within the mural thrombus may be parti ally related to calcification or layers of calcified atherosclerotic plaque as they were p artially visualized on the preceding lumbar spine CT, although a significant portion of these may be related to contrast opacification. Pulmonary arteries are normal. No mass or infiltrate in the lung parenchyma. Moderate hiatal hernia. No pleural thickening, pleural effusion or pneumothorax. No abnormal mediastinal or hilar mass or lymphadenopathy seen. No chest wall mass or abnormal axillar y lymphadenopathy. Celiac, SMA and renal arteries show no suspicious findings. Atrophic changes of both kidneys again se en. Slight enlargement of a an exophytic left superior pole cyst now measuring 2.8 cm, maintaining fl uid density. Other hypoattenuating renal cortical lesions are not significantly changed. Solid abdomi nal viscera and bowel otherwise show no significant findings. No mass or abnormal lymphadenopathy. Co lonic diverticulosis. IMPRESSION: Enlarging abdominal aortic aneurysm starting above the level of the renal arteries, now with aneurysm sac measuring up to 6.2 cm in greatest diameter. Thrombus fissuration sign with dissecting contrast within the anterior mural thrombus material, a sig n which suggests impending aneurysm rupture. Other incidental findings as above. The findings were communicated to Jaime Juan on 07/24/2023 at 16:21 hours.
--- NOTE | 2023-07-24 16:40 | EDPHYS ---
Physician Documentation [facility] Name: Jose Tang Age: 83 yrs Sex: Female : 1940 Arrival Date: 07/24/2023 Time: 10:41 Bed 19 Private MD: ED Physician Chele Avery HPI: 07/24 11:08 This 83 yrs old Female presents to ER via Wheelchair with complaints of Fall ec2 Injury, Back Pain. 11:08 Patient arrives today for evaluation of low back pain. Patient states that 4 days ago ec2 she was getting up and subsequently found online on her buttock. Complains of low back pain, has been ambulatory since. Took Tylenol this morning with some improvement in symptoms. Patient reports no LOC, no head strike, no head pain or neck pain.. Historical: - Allergies: 11:06 No Known Allergies; hb - PMHx: 11:06 Hyperlipidemia; Hypothyroidism; Hypertension; hb - Immunization history:: Adult Immunizations up to date. - Social history:: Smoking status: Patient denies any tobacco usage or history of. ROS: 11:10 Constitutional: as per hpi ec2 Exam: 11:10 Constitutional: GEN: No acute distress HEENT: -Head: no deformities -Eyes: EOMI CV: ec2 regular rate LUNGS: no respiratory distress ABD: non-tender SKIN: no wounds appreciated MSK: No C/T/L spine deformities , mild L-spine TTP RUE w/o bony deformity LUE w/o bony deformity RLE w/o bony deformity LLE w/o bony deformity NEURO: moves all extremities equally, GCS 15 (E4, V5, M6) Vital Signs: 11:04 BP 145 / 108; Pulse 72; Resp 18; Temp 98.5; Pulse Ox 97% ; Weight 52.62 kg; Height 5 hb ft. 0 in. ; Pain 8/10; 14:37 BP 166 / 87; Pulse 93; Resp 16 S; Pulse Ox 100% on R/A; kc6 15:15 BP 135 / 90; Pulse 87; Resp 18 S; Pulse Ox 99% on R/A; kc6 15:32 BP 141 / 88; Pulse 81; Resp 14 S; Pulse Ox 97% on R/A; kc6 16:05 BP 142 / 89; Pulse 88; Resp 16 S; Pulse Ox 97% on R/A; kc6 16:36 BP 149 / 90; Pulse 88; Resp 14 S; Pulse Ox 100% on R/A; kc6 16:48 BP 135 / 77; Pulse 90; Resp 18 S; Pulse Ox 100% on R/A; kc6 16:53 BP 132 / 82; Pulse 85; Resp 14 S; Pulse Ox 97% on R/A; kc6 17:27 BP 121 / 69; Pulse 90; Resp 14 S; Pulse Ox 97% on R/A; kc6 17:32 BP 116 / 61; Pulse 93; Resp 18 S; Pulse Ox 97% on R/A; kc6 11:04 Body Mass Index 22.65 (52.62 kg, 152.4 cm) hb 11:04 Pain Scale: Adult hb MDM: 11:02 Patient medically screened. ec2 11:10 Data reviewed: vital signs. ED course: Patient arrives today for low back pain. ec2 Examination remarkable for reassuring examination, mild lower spine TTP, will obtain CT scan of the L-spine, treat the patient with Robaxin and Lidoderm patch. Currently considering muscular sprain versus strain, spine fracture. Low suspicion for spinal cord pathology given her well appearance and lack of neurosymptoms.. 12:23 ED course: CT of the L-spine shows aortic aneurysm, radiology with recommendation for ec2 dedicated imaging. Will obtain CT of the abdomen to evaluate for aortic pathology.. 15:54 ED course: CBC is reassuring. Metabolic profile with renal dysfunction and creatinine ec2 122 and a GFR of 27. Despite the diminished GFR, I feel that the CT scan should be performed regardless given the concern for possible emergent pathology. Patient updated regarding plan of care. . 16:37 ED course: I discussed case with Dr. Loving, thoracic surgery at [facility] who ec2 agrees to except the patient. Family updated regarding plan of care.. 07/24 12:23 Order name: CBC with Diff; Complete Time: 15:53 ec2 07/24 12:23 Order name: BMP; Complete Time: 15:53 ec2 07/24 15:44 Order name: CBC Smear Scan; Complete Time: 15:53 EDMS 07/24 16:24 Order name: Type And Screen ec2 07/24 16:24 Order name: PT-INR; Complete Time: 17:03 ec2 07/24 16:24 Order name: Ptt, Activated; Complete Time: 17:03 ec2 07/24 16:24 Order name: Troponin High Sensitivity; Complete Time: 17:03 ec2 07/24 11:08 Order name: CT Lumbar Spine Wo Con; Complete Time: 13:18 ec2 07/24 15:33 Order name: Angio Aorta For Dissection; Complete Time: 16:35 EDMS Administered Medications: 13:11 Drug: Lidoderm Topical Patch 5 % (700 mg/patch) 1 patches Topical once; leave on for 12 jl7 hours; cover most painful area; may cut into smaller pieces {Note: low back.} Route: Topical; Site: affected area; 15:06 Follow up: Response: No adverse reaction; Pain is decreased kc6 13:12 Drug: Methocarbamol PO 500 mg PO once Route: PO; jl7 15:06 Follow up: Response: No adverse reaction; Pain is decreased kc6 16:36 Drug: Labetalol IV 10 mg IV at bolus once Route: IV; Rate: bolus; Site: right kc6 antecubital; 16:48 Follow up: Response: No adverse reaction; Blood pressure is unchanged; IV Status: kc6 Completed infusion; IV Intake: 2ml 16:45 Drug: Labetalol IV 10 mg IV at bolus once Route: IV; Rate: bolus; Site: right kc6 antecubital; 16:48 Follow up: Response: No adverse reaction; Blood pressure is lowered; IV Status: kc6 Completed infusion; IV Intake: 2ml 17:20 Drug: niCARdipine IV 5 mg/hr IV at calculated rate See Administration Instructions; kc6 (Standard concentration 25 mg / 250 mL NS); Recommended max rate 15 mg/hr; Titrate 2.5 mg/hr as often as every 15 minutes to achieve goal (see titration policy); Goal parameter SBP less than 160 mmHg Route: IV; Rate: calculated rate; Site: right antecubital; 17:28 Follow up: Response: No adverse reaction; Blood pressure is lowered; IV Status: kc6 Infusion continued upon transfer Disposition Summary: 07/24/23 16:39 Transfer Ordered Notes: Transfer Location: [facility] ec2 Reason: Higher level of care ec2 Condition: Stable ec2 Problem: an acute exacerbation ec2 Symptoms: are unchanged ec2 Accepting Physician: Dr. Loving, surgery, [facility](07/24/23 17:50) kc6 Diagnosis - Dissection of abdominal aorta ec2 - Abdominal aortic aneurysm, without rupture ec2 Forms: - Medication Reconciliation Form ec2 - SBAR form ec2 Critical care time excluding procedures: 16:39 Critical care time: Bedside Care: 30 minutes, Consultation: 5 minutes. Total time: 35 ec2 minutes Signatures: Dispatcher [employer] EDHI Annette Lozano RN RN Cara Ramos RN RN jl7 Shanna Padgett RN RN kc6 Chele Avery MD MD ec2 Corrections: (The following items were deleted from the chart) 11:10 11:08 Patient arrives today for evaluation of low back pain. Patient states. ec2 ec2 11:11 11:08 Patient arrives today for evaluation of low back pain. Patient states . ec2 ec2 11:45 11:45 Patient medically screened. ec2 ec2 15:33 12:23 Abdomen Angio+CT.RAD.BRZ ordered. [facility] EDHI 17:50 16:39 Dr. Loving, surgery, [facility] ec2 kc6
--- NOTE | 2023-07-24 16:40 | ER ---
Nurse's Notes [facility] Name: Jose Tang Age: 83 yrs Sex: Female : 1940 Arrival Date: 07/24/2023 Time: 10:41 Bed 19 Private MD: Diagnosis: Dissection of abdominal aorta;Abdominal aortic aneurysm, without rupture Presentation: 07/24 11:04 Chief complaint: Low back pain that radiates to left abdomen after mechanical fall from hb standing onto carpet 4 days ago. Denies other injuries, negative LOC. Coronavirus screen: At this time, the client does not indicate any symptoms associated with coronavirus-19. Ebola Screen: No symptoms or risks identified at this time. Initial Sepsis Screen: Does the patient meet any 2 criteria? No. Patient's initial sepsis screen is negative. Does the patient have a suspected source of infection? No. Patient's initial sepsis screen is negative. Risk Assessment: Do you want to hurt yourself or someone else? Patient reports no desire to harm self or others. Onset of symptoms was July 20, 2023. 11:04 Method Of Arrival: Wheelchair hb 11:04 Acuity: ISREAL 4 hb 12:22 Acuity: ISREAL 3 hb 16:21 Acuity: ISREAL 2 hb Historical: - Allergies: 11:06 No Known Allergies; hb - PMHx: 11:06 Hyperlipidemia; Hypothyroidism; Hypertension; hb - Immunization history:: Adult Immunizations up to date. - Social history:: Smoking status: Patient denies any tobacco usage or history of. Screenin:37 [facility] ED Fall Risk Assessment (Adult) History of falling in the last 3 months, kc6 including since admission Yes- single mechanical fall (1 pt) Confusion or Disorientation No (0 pts) Intoxicated or Sedated No (0 pts) Impaired Gait Yes (1 pt) Mobility Assist Device Used Yes (1 pt) Altered Elimination No (0 pt) Score/Fall Risk Level 0 - 2 = Low Risk. Abuse screen: Denies threats or abuse. Denies injuries from another. Nutritional screening: No deficits noted. Tuberculosis screening: No symptoms or risk factors identified. Assessment: 13:12 Reassessment: Patient and/or family updated on plan of care and expected duration. Pain jl7 level reassessed. Patient is alert, oriented x 3, equal unlabored respirations, skin warm/dry/pink. Pain to low back, rated 8/10, medicated as ordered. Pt remains in lobby awaiting radiology results. 14:35 General: Appears in no apparent distress. comfortable, well groomed, well developed, kc6 Behavior is calm, cooperative, appropriate for age. Pain: Complains of pain in lumbar area, left low back and right low back Pain does not radiate. Pain currently is 4 out of 10 on a pain scale. at worst was 10 out of 10 on a pain scale. Quality of pain is described as aching, dull, Pain began 1 day ago. Is continuous, Alleviated by medications, rest, Aggravated by increased activity, Noted to be resistant to movement, Also complains of no other associated symptoms. Neuro: Level of Consciousness is awake, alert, obeys commands, Oriented to person, place, time, situation, Appropriate for age. Cardiovascular: Denies chest pain, shortness of breath, Heart tones S1 S2 present Capillary refill < 3 seconds Rhythm is sinus tachycardia. Respiratory: Airway is patent Trachea midline Respiratory effort is even, unlabored, Respiratory pattern is regular, symmetrical. GI: No signs and/or symptoms were reported involving the gastrointestinal system. : No signs and/or symptoms were reported regarding the genitourinary system. EENT: No signs and/or symptoms were reported regarding the EENT system. Derm: No signs and/or symptoms reported regarding the dermatologic system. Skin is intact, is healthy with good turgor, Skin is pink, warm \T\ dry. Musculoskeletal: No signs and/or symptoms reported regarding the musculoskeletal system. Circulation, motion, and sensation intact. Capillary refill < 3 seconds, Range of motion: intact in all extremities. 14:50 Reassessment: Tequila Alvarado RN at bedside attempting to start an IV. kc6 15:15 Reassessment: Patient appears in no apparent distress at this time. No changes from kc6 previously documented assessment. Patient and/or family updated on plan of care and expected duration. Pain level reassessed. Patient is alert, oriented x 3, equal unlabored respirations, skin warm/dry/pink. 15:35 Reassessment: pt to CT via stretcher. kc6 16:05 Reassessment: Patient appears in no apparent distress at this time. No changes from kc6 previously documented assessment. Patient and/or family updated on plan of care and expected duration. Pain level reassessed. Patient is alert, oriented x 3, equal unlabored respirations, skin warm/dry/pink. 16:36 Reassessment: Patient appears in no apparent distress at this time. No changes from kc6 previously documented assessment. Patient and/or family updated on plan of care and expected duration. Pain level reassessed. Patient is alert, oriented x 3, equal unlabored respirations, skin warm/dry/pink. 17:27 Reassessment: Patient appears in no apparent distress at this time. No changes from kc6 previously documented assessment. Patient and/or family updated on plan of care and expected duration. Pain level reassessed. Patient is alert, oriented x 3, equal unlabored respirations, skin warm/dry/pink. Vital Signs: 11:04 BP 145 / 108; Pulse 72; Resp 18; Temp 98.5; Pulse Ox 97% ; Weight 52.62 kg; Height 5 hb ft. 0 in. ; Pain 8/10; 14:37 BP 166 / 87; Pulse 93; Resp 16 S; Pulse Ox 100% on R/A; kc6 15:15 BP 135 / 90; Pulse 87; Resp 18 S; Pulse Ox 99% on R/A; kc6 15:32 BP 141 / 88; Pulse 81; Resp 14 S; Pulse Ox 97% on R/A; kc6 16:05 BP 142 / 89; Pulse 88; Resp 16 S; Pulse Ox 97% on R/A; kc6 16:36 BP 149 / 90; Pulse 88; Resp 14 S; Pulse Ox 100% on R/A; kc6 16:48 BP 135 / 77; Pulse 90; Resp 18 S; Pulse Ox 100% on R/A; kc6 16:53 BP 132 / 82; Pulse 85; Resp 14 S; Pulse Ox 97% on R/A; kc6 17:27 BP 121 / 69; Pulse 90; Resp 14 S; Pulse Ox 97% on R/A; kc6 17:32 BP 116 / 61; Pulse 93; Resp 18 S; Pulse Ox 97% on R/A; kc6 11:04 Body Mass Index 22.65 (52.62 kg, 152.4 cm) hb 11:04 Pain Scale: Adult hb Vitals: 15:32 Cardiac Rhythm Assessment Sinus rhythm. kc6 ED Course: 10:46 Patient arrived in ED. mg5 10:49 Avery, Chele, MD is Attending Physician. ec2 11:06 Triage completed. hb 11:06 Arm band placed on. hb 11:17 CT Lumbar Spine Wo Con In Process Unspecified. EDMS 12:58 Radiology exam delayed due to lab results not completed at this time. (BUN/Creatinine) ls3 IV insertion attempt and/or patient not having appropriate IV at this time. 14:28 Shanna Padgett RN is Primary Nurse. kc6 14:36 Patient maintains SpO2 saturation greater than 95% on room air. kc6 14:37 Patient has correct armband on for positive identification. Placed in gown. Bed in low kc6 position. Call light in reach. Side rails up X2. Adult w/ patient. Client placed on continuous cardiac and pulse oximetry monitoring. NIBP monitoring applied. workday manager on. 14:49 Missed attempt(s): 22 gauge in left antecubital area. Missed attempt(s): 22 gauge in kc6 right antecubital area. 15:00 Inserted saline lock: 20 gauge in right antecubital area, using aseptic technique. cp4 15:47 Angio Aorta For Dissection In Process Unspecified. EDMS 16:24 initiated a transfer with Becky Heller from the [facility]. eb 16:35 connected the surgeon operations manager/coordinator for [facility] with Dr. Avery for patient transfer eb consultation. 16:45 Inserted saline lock: 20 gauge in left antecubital area, using aseptic technique. kc6 17:04 connected the vocational rehabilitation counselor operations manager/coordinator for [facility] with Dr. Avery for patient eb transfer consultation. 17:04 administrative approval given by Becky Heller Rn/ patient has been accepted to eb Recovery bed 47/ Dr. Ishan Pfeiffer has accepted the patient in transfer. report to be called to [phone]. 17:50 No provider procedures requiring assistance completed. Patient transferred, IV remains kc6 in place. Administered Medications: 13:11 Drug: Lidoderm Topical Patch 5 % (700 mg/patch) 1 patches Topical once; leave on for 12 jl7 hours; cover most painful area; may cut into smaller pieces {Note: low back.} Route: Topical; Site: affected area; 15:06 Follow up: Response: No adverse reaction; Pain is decreased kc6 13:12 Drug: Methocarbamol PO 500 mg PO once Route: PO; jl7 15:06 Follow up: Response: No adverse reaction; Pain is decreased kc6 16:36 Drug: Labetalol IV 10 mg IV at bolus once Route: IV; Rate: bolus; Site: right kc6 antecubital; 16:48 Follow up: Response: No adverse reaction; Blood pressure is unchanged; IV Status: kc6 Completed infusion; IV Intake: 2ml 16:45 Drug: Labetalol IV 10 mg IV at bolus once Route: IV; Rate: bolus; Site: right kc6 antecubital; 16:48 Follow up: Response: No adverse reaction; Blood pressure is lowered; IV Status: kc6 Completed infusion; IV Intake: 2ml 17:20 Drug: niCARdipine IV 5 mg/hr IV at calculated rate See Administration Instructions; kc6 (Standard concentration 25 mg / 250 mL NS); Recommended max rate 15 mg/hr; Titrate 2.5 mg/hr as often as every 15 minutes to achieve goal (see titration policy); Goal parameter SBP less than 160 mmHg Route: IV; Rate: calculated rate; Site: right antecubital; 17:28 Follow up: Response: No adverse reaction; Blood pressure is lowered; IV Status: kc6 Infusion continued upon transfer Medication: 17:50 VIS not applicable for this client. kc6 Intake: 16:48 IV: 2ml; Total: 2ml. kc6 16:48 IV: 2ml; Total: 4ml. kc6 Outcome: 16:39 ER care complete, transfer ordered by . ec2 17:50 Transferred by helicopter to [facility], Transfer form completed. kc6 Note: report called to STEPHEN Montemayor 17:50 Condition: stable 17:50 Patient left the ED. kc6 Signatures: Dispatcher [employer] EDMS Annette Lozano RN RN hb Leal, Jahala, RN RN jl7 Lisa Montaño Lynzie ls3 Shanna Padgett RN RN kc6 Poppy Johnson mg5 Chele Avery MD MD ec2 Oriana Alvarado cp4 Corrections: (The following items were deleted from the chart) 11:08 11:04 BP 145 / 108; Pulse 72bpm; Resp 18bpm; Pulse Ox 97%; Temp 98.5F; hb hb
[2023-07-24 17:02] LABS: Protime INR 1.17
[2023-07-24 18:46] VITALS: TEMP 98.5; O2SAT 97
[2023-07-24 19:04] VITALS: BP 116/61
== END ==
LOC: ER 10:41
DX: I71.02 Dissection of abdominal aorta (principal); I10 Essential (primary) hypertension; E03.9 Hypothyroidism, unspecified; E78.5 Hyperlipidemia, unspecified
CPT/HCPCS: 85025; 80048; 36415; 86900; 86850; 85610; 86901; 85730; 84484; 72131; 71275; 74175; 96375; 96374; 99285; Q9967; J2001; J7050

== ENCOUNTER → 2023-07-29 | Emergency (ER) | payer OTHER ==
[~2023-07-29] MED LIST changes: +CODEINE 30MG/APAP 300MG TAB ONE; -LABETALOL 20 MG/4ML SYRINGE IV ONE; +LIDOCAINE 2% W/EPI 1:200,000 MPF 20 ML VIAL IM ONE; -LIDOCAINE 4% PATCH ONE; -NA CHLORIDE 0.9% 0 ML ONE; -NICARDIPINE HCL 25 MG/10 ML IV ONE; +TDAP (DIPHTH,PERTUSS(ACELL),TET VAC) 0.5 ML VIAL IMVAC ONE; -methocarbamoL 500 MG TAB ONE
--- NOTE | 2023-07-29 22:27 | RAD REPORT ---
EXAM DESCRIPTION: CT - [id number] - 07/29/2023 10:15 pm CLINICAL HISTORY: Trauma, head and neck injury. head injury COMPARISON: No comparisons TECHNIQUE: Axial 5 mm thick images of the head were obtained. Axial 2 mm thick images of the cervical spine were obtained with sagittal and coronal reconstruction images generated and reviewed. All CT scans are performed using dose optimization technique as appropriate and may include automated exposure control or mA/KV adjustment according to patient size. FINDINGS: CT HEAD WITHOUT CONTRAST: No acute hemorrhage, hydrocephalus or extra-axial collection is identified.Moderate brain atrophy.No areas of brain edema or midline shift. The paranasal sinuses and mastoids are clear.The calvarium is intact. Small left frontal scalp hemato ma. CT CERVICAL SPINE WITHOUT CONTRAST: No fracture or subluxation.Moderate multilevel degenerative spondylosis is present.No prevertebral so ft tissues swelling is identified. Mild carotid atherosclerosis. IMPRESSION: No acute intracranial or cervical spine findings.
--- NOTE | 2023-07-29 23:42 | ER ---
Nurse's Notes [facility] Name: Jose Tang Age: 83 yrs Sex: Female : 1940 Arrival Date: 07/29/2023 Time: 21:21 Bed 17 Private MD: Diagnosis: Facial Laceration/ Laceration without foreign body of cheek and temporomandibular area;Fall at Home, acute left frontotemporal laceration with arterial bleeding, acute closed head injury Presentation: 07/29 21:36 Chief complaint: Patient's son or daughter states: Trying to use the commode and fell km8 forward hitting head on the commode. Coronavirus screen: At this time, the client does not indicate any symptoms associated with coronavirus-19. Ebola Screen: Patient negative for fever greater than or equal to 101.5 degrees Fahrenheit, and additional compatible Ebola Virus Disease symptoms Patient denies exposure to infectious person. Patient denies travel to an Ebola-affected area in the 21 days before illness onset. No symptoms or risks identified at this time. Initial Sepsis Screen:. Risk Assessment: Do you want to hurt yourself or someone else? Patient reports no desire to harm self or others. Onset of symptoms was July 29, 2023. Care prior to arrival: Medication(s) given: Tylenol, 500 mg 2100 Tramadol 1730. 21:36 Acuity: ISREAL 2 km8 21:36 Method Of Arrival: Wheelchair km8 07/30 00:14 Trauma event details: Injury occurred in the [facility]. ha1 00:17 Initial Sepsis Screen: Does the patient meet any 2 criteria? No. Patient's initial ha1 sepsis screen is negative. Does the patient have a suspected source of infection? No. Patient's initial sepsis screen is negative. Triage Assessment: 07/29 21:40 General: Appears in no apparent distress. uncomfortable, Behavior is calm, cooperative, km8 appropriate for age. Pain: Complains of pain in forehead Pain does not radiate. Pain began suddenly. EENT: No deficits noted. No signs and/or symptoms were reported regarding the EENT system. Neuro: Jordan Agitation-Sedation Scale (RASS): 0 - Alert and Calm Level of Consciousness is awake, alert, obeys commands, Oriented to person, place, time, situation, Appropriate for age. Cardiovascular: No deficits noted. Respiratory: Airway is patent Respiratory effort is even, unlabored, Respiratory pattern is regular, symmetrical. GI: No deficits noted. No signs and/or symptoms were reported involving the gastrointestinal system. : No deficits noted. No signs and/or symptoms were reported regarding the genitourinary system. Derm: Wound noted right spiritism. Musculoskeletal: No deficits noted. No signs and/or symptoms reported regarding the musculoskeletal system. Injury Description: Laceration sustained to right spiritism is clean, full thickness, with pulsatile bleeding. Historical: - Allergies: 21:38 No Known Allergies; km8 - Home Meds: 21:38 blocked aortic valve [Active]; - PMHx: 21:38 Hyperlipidemia; Hypertension; Hypothyroidism; abdominal aneurysm (Hypothyroidism); Historical Immunization: - Administered Vaccines 23:55 Tetanus-Diphtheria Toxoid IM Adult 0.5 ml ha [employer]: [employer]; Exp: ThuNov 25 2024; Lot #: [id number]; Series: 1 of 1; Patient Consent: Obtained; Date/Time: ; Source Name: Jose Tang; Source Relationship: Self; Address Information: [address] [place] [address]; ; Education: Provided; VIS Presented Date: ; VIS Publication: Tetanus/Diphtheria (Td) Vaccine VIS 10/14/2016 (historic) 22:26 Acetaminophen-Codeine PO (300 mg-30 mg) 1 tablet ha1 21:55 Lidocaine-Epinephrine Infiltration -1%: (1:100,000) 20 ml ha1 - Immunization history:: Adult Immunizations up to date. - Social history:: Smoking status: Patient denies any tobacco usage or history of. - Immunization history: Last tetanus immunization: < 10 years ago. - Family history:: not pertinent. Screenin/25 00:11 [facility] ED Fall Risk Assessment (Adult) History of falling in the last 3 months, ha1 including since admission Yes- single mechanical fall (1 pt) Confusion or Disorientation No (0 pts) Intoxicated or Sedated No (0 pts) Impaired Gait Yes (1 pt) Mobility Assist Device Used Yes (1 pt) Altered Elimination No (0 pt) Score/Fall Risk Level 3 or more points = High Risk Oriented to surroundings, Maintained a safe environment, Educated pt \T\ family on fall prevention, incl call for assistance when getting out of bed, Hourly rounding (assess needs \T\ fall precautionary measures) done. Abuse screen: Denies threats or abuse. Denies injuries from another. Nutritional screening: No deficits noted. Tuberculosis screening: No symptoms or risk factors identified. Primary Survey: 07/29 21:28 Uncontrolled hemorrhage is observed, assessment has been re-ordered to <C> ABC. ha1 Breathing/Chest: Spontaneous respiratory effort, equal unlabored respirations, breath sounds clear bilaterally, regular pattern, symmetrical chest rise and fall. Respiratory effort: spontaneous. Circulation: Hemorrhage: External hemorrhage noted. bleeding from left spiritism area. Disability Pupils are equal, round, reactive to light and accommodation. Client is alert. Exposure/Environment: All clothing and personal items were removed. Forensic evidence collection is not deemed to be indicated at this time. Items placed in patient belonging bag. Assessment: 21:28 General: Appears uncomfortable, Behavior is cooperative. General: bleeding profusely ha1 from laceration to left spiritism. Notified Dr. Bellamy. Charge nurse applying pressure to site. . Pain: Complains of pain in right spiritism and forehead Pain currently is 8 out of 10 on a pain scale. Quality of pain is described as throbbing, Pain began suddenly. Neuro: Level of Consciousness is awake, alert, obeys commands, Oriented to person, place, time, situation. Cardiovascular: Capillary refill < 3 seconds Patient's skin is warm and dry. Respiratory: Airway is patent Respiratory effort is even, unlabored, Respiratory pattern is regular, symmetrical. Derm: Skin is pink, warm \T\ dry. Injury Description: Laceration sustained to right spiritism is full thickness, 2.6 to 7.5 cm long, bleeding profusely, is bleeding profusely at this time. A dressing was applied. 22:30 Reassessment: Patient and/or family updated on plan of care and expected duration. Pain ha1 level reassessed. Patient is alert, oriented x 3, equal unlabored respirations, skin warm/dry/pink. no bleeding at laceration site Patient states feeling better. Patient states symptoms have improved. 23:30 Reassessment: Patient and/or family updated on plan of care and expected duration. Pain ha1 level reassessed. Patient is alert, oriented x 3, equal unlabored respirations, skin warm/dry/pink. Vital Signs: 21:50 Weight 52.62 kg; Height 5 ft. 0 in. ; ha1 21:50 BP 135 / 71; Pulse 72; Resp 18 S; Pulse Ox 96% on R/A; ha1 22:19 BP 134 / 63; Pulse 78; Resp 20; Temp 98.1(O); Pulse Ox 96% on R/A; ha1 23:30 BP 127 / 72; Pulse 79; Resp 17 S; Pulse Ox 97% on R/A; ha1 21:50 Body Mass Index 22.65 (52.62 kg, 152.4 cm) ha1 ED Course: 21:24 Patient arrived in ED. gm2 21:28 Patient has correct armband on for positive identification. Placed in gown. Bed in low ha1 position. Call light in reach. Side rails up X2. Adult w/ patient. 21:35 Assist provider with laceration repair on left spiritism that was between 2.6 to 7.5 cm ha1 using sutures. Set up tray. Performed by Perry Burr MD Dressed with 4X4s, Kerlix, Patient tolerated well. 21:38 Triage completed. km8 21:42 Arm band placed on right wrist. km8 21:45 Perry Burr MD is Attending Physician. kb 22:16 CT Head C Spine In Process Unspecified. EDMS 22:18 Becki Garcia RN is Primary Nurse. ha1 07/30 00:13 Patient maintains SpO2 saturation greater than 95% on room air. ha1 00:14 Thermoregulation: warm blanket given to patient. ha1 00:16 Patient did not have IV access during this emergency room visit. ha1 00:17 Provided Education on: wound care . ha1 Administered Medications: 07/29 21:55 Drug: Lidocaine-Epinephrine Infiltration -1%: (1:100,000) 20 ml 20 ml Infiltration ha1 once; to bedside {Note: administered by Dr. Bellamy.} Volume: 20 ml; Route: Infiltration; 22:15 Follow up: Response: No adverse reaction ha1 22:26 Drug: Acetaminophen-Codeine PO (300 mg-30 mg) 1 tablet PO once; RASS on ADMIN: Combtv4, ha1 Very Agttd3, Agttd2, Rstlss1, AlertClm0, Drwsy-1, Lt Sdtn-2, Mod Sdtn-3, Dp Sdtn-4, UnArsble-5 Route: PO; 23:55 Follow up: Response: No adverse reaction; Pain is decreased; RASS: Alert and Calm (0) ha1 23:55 Drug: Tetanus-Diphtheria Toxoid IM Adult 0.5 ml IM once; Provide Vaccine Information ha1 Statement (VIS). {Silver [employer]: [employer]; Exp: ThuNov 25 2024; Lot #: [id number]; Series: 1 of 1; Patient Consent: Obtained; Date/Time: ; Source Name: Jose Tang; Source Relationship: Self; Address Information: [address] [place] [address]; ; Education: Provided; VIS Presented Date: ; VIS Publication: Tetanus/Diphtheria (Td) Vaccine VIS 10/14/2016 (historic)} Route: IM; Site: left deltoid; 07/30 00:17 Follow up: Response: (VIS) Vaccine information sheet provided today. Questions and/or ha1 concerns addressed. VIS edition date: Feb 08, 2021.; No adverse reaction Medication: 00:13 Vaccine Information Statement (VIS) provided today. Questions and/or concerns ha1 addressed. VIS edition date: July 30, 2023. Outcome: 07/29 23:41 Discharge ordered by MD. de la garza4 07/30 00:16 Discharged to home via wheelchair, ha1 Condition: stable Discharge instructions given to patient, family, Instructed on discharge instructions, follow up and referral plans. medication usage, Demonstrated understanding of instructions, follow-up care, medications, Prescriptions given X 1, 00:17 Patient left the ED. ha1 Signatures: Dispatcher [employer] EDToshia Hernandez, Becki Diggs, RN RN ha1 Perry Burr MD MD sp4 Dinora Boston 2 Violet Diamond RN RN km8
--- NOTE | 2023-07-29 23:42 | EDPHYS ---
Physician Documentation [facility] Name: Jose Tang Age: 83 yrs Sex: Female : 1940 Arrival Date: 07/29/2023 Time: 21:21 Bed 17 Private MD: ED Physician Perry Burr HPI: 07/29 21:48 This 83 yrs old Female presents to ER via Wheelchair with complaints of Fall sp4 Injury. 21:48 Left temporal area laceration . sp4 07/30 00:37 Very pleasant 83-year-old female who takes unknown blood thinner presents with acute sp4 fall and laceration to left frontal temporal area with a small laceration and active arterial bleeding. Patient arrived with private vehicle, bleeding is controlled by compression. . Historical: - Allergies: 07/29 21:38 No Known Allergies; km8 - Home Meds: 21:38 blocked aortic valve [Active]; km8 - PMHx: 21:38 Hyperlipidemia; Hypertension; Hypothyroidism; abdominal aneurysm (Hypothyroidism); km8 - Immunization history:: Adult Immunizations up to date. - Social history:: Smoking status: Patient denies any tobacco usage or history of. - Immunization history: Last tetanus immunization: < 10 years ago. - Family history:: not pertinent. ROS: 07/30 00:37 Constitutional: Negative for fever, chills, and weight loss, positive acute head injury sp4 and left frontal parietal laceration. All other systems are negative, Exam: 00:37 Constitutional: This is a well developed, well nourished patient who is awake, alert, sp4 and in no acute distress. Head/Face: Normocephalic, no laceration just above the left anabaptism with small arterial bleeding on exam. Bleeding is controlled by pressure application.. Eyes: Pupils equal round and reactive to light, extra-ocular motions intact. Lids and lashes normal. Conjunctiva and sclera are not injected. Cornea within normal limits. Periorbital areas with no swelling, redness, or edema. ENT: Nares patent. No nasal discharge, no septal abnormalities noted. Tympanic membranes are normal and external auditory canals are clear. Oropharynx with no redness, swelling, or masses, exudates, or evidence of obstruction, uvula midline. Mucous membranes moist. Neck: Trachea midline, no thyromegaly or masses palpated, and no cervical lymphadenopathy. Supple, full range of motion without nuchal rigidity, or vertebral point tenderness. Chest/axilla: Normal chest wall appearance and motion. Nontender with no deformity. No lesions are appreciated. Cardiovascular: Regular rate and rhythm with a normal S1 and S2. No gallops, murmurs, or rubs. Normal PMI, no JVD. No pulse deficits. Respiratory: Lungs have equal breath sounds bilaterally, clear to auscultation and percussion. No rales, rhonchi or wheezes noted. No increased work of breathing, no retractions or nasal flaring. Abdomen/GI: Soft, non-tender, with normal bowel sounds. No distension or tympany. No guarding or rebound. No evidence of tenderness throughout. Back: No spinal tenderness. No costovertebral tenderness. Skin: Warm, dry with normal turgor. Normal color with no rashes, no lesions, and no evidence of cellulitis. MS/ Extremity: Pulses equal, no cyanosis. Neurovascular intact. Full, normal range of motion. Neuro: Awake and alert, GCS 15, oriented to person, place, time, and situation. Cranial nerves II-XII grossly intact. Motor strength 5/5 in all extremities. Sensory grossly intact. Psych: Awake, alert, with orientation to person, place and time. Behavior, mood, and affect are within normal limits Vital Signs: 07/29 21:50 Weight 52.62 kg; Height 5 ft. 0 in. ; ha1 21:50 BP 135 / 71; Pulse 72; Resp 18 S; Pulse Ox 96% on R/A; ha1 22:19 BP 134 / 63; Pulse 78; Resp 20; Temp 98.1(O); Pulse Ox 96% on R/A; ha1 23:30 BP 127 / 72; Pulse 79; Resp 17 S; Pulse Ox 97% on R/A; ha1 21:50 Body Mass Index 22.65 (52.62 kg, 152.4 cm) [facility] Laceration: 07/30 00:37 Wound Repair of 2cm ( 0.8in ) subcutaneous laceration to left temporal area. Arterial sp4 bleeding noted.. Distal neuro/vascular/tendon intact. Anesthesia: Wound infiltrated with 10 mls of 1% lidocaine w/ Epi. Wound prep: Moderate cleansing by nurse. Skin closed with 8 3-0 Silk using interrupted sutures and sterile technique. Dressed with 4x4's, Kerlix, pressure dressing. Patient tolerated well. MDM: 07/29 21:45 Patient medically screened. kb 23:22 ED course: EXAM DESCRIPTION: CT - CTHCSP[facility]OC - 07/29/2023 10:15 pm CLINICAL HISTORY: sp4 Trauma, head and neck injury. head injury COMPARISON: No comparisons TECHNIQUE: Axial 5 mm thick images of the head were obtained. Axial 2 mm thick images of the cervical spine were obtained with sagittal and coronal reconstruction images generated and reviewed. All CT scans are performed using dose optimization technique as appropriate and may include automated exposure control or mA/KV adjustment according to patient size. FINDINGS: CT HEAD WITHOUT CONTRAST: No acute hemorrhage, hydrocephalus or extra-axial collection is identified.Moderate brain atrophy.No areas of brain edema or midline shift. The paranasal sinuses and mastoids are clear.The calvarium is intact. Small left frontal scalp hematoma. CT CERVICAL SPINE WITHOUT CONTRAST: No fracture or subluxation.Moderate multilevel degenerative spondylosis is present.No prevertebral soft tissues swelling is identified. Mild carotid atherosclerosis. IMPRESSION: No acute intracranial or cervical spine findings. 23:39 ED course: EXAM DESCRIPTION: CT - CTHCSP[facility]OC - 07/29/2023 10:15 pm CLINICAL HISTORY: sp4 Trauma, head and neck injury. head injury COMPARISON: No comparisons TECHNIQUE: Axial 5 mm thick images of the head were obtained. Axial 2 mm thick images of the cervical spine were obtained with sagittal and coronal reconstruction images generated and reviewed. All CT scans are performed using dose optimization technique as appropriate and may include automated exposure control or mA/KV adjustment according to patient size. FINDINGS: CT HEAD WITHOUT CONTRAST: No acute hemorrhage, hydrocephalus or extra-axial collection is identified.Moderate brain atrophy.No areas of brain edema or midline shift. The paranasal sinuses and mastoids are clear.The calvarium is intact. Small left frontal scalp hematoma. CT CERVICAL SPINE WITHOUT CONTRAST: No fracture or subluxation.Moderate multilevel degenerative spondylosis is present.No prevertebral soft tissues swelling is identified. Mild carotid atherosclerosis. IMPRESSION: No acute intracranial or cervical spine findings. . 07/30 00:37 Differential diagnosis: abrasion, closed head injury, contusion, fracture, laceration, sp4 multiple trauma. Data reviewed: vital signs, nurses notes, radiologic studies, CT scan. Consideration of Admission/Observation Escalation of care including admission/observation considered. ED course: On repeat evaluation in the laceration is sutured and there is no bleeding noted. A light pressure dressing was applied patient advised to keep the dressing on for 24 hours no head washing. Patient to keep silk sutures until he followed by themselves. No suture removal necessary. . 07/29 21:49 Order name: CT Head C Spine; Complete Time: 23:22 sp4 Administered Medications: 07/29 21:55 Drug: Lidocaine-Epinephrine Infiltration -1%: (1:100,000) 20 ml 20 ml Infiltration ha1 once; to bedside {Note: administered by Dr. Bellamy.} Volume: 20 ml; Route: Infiltration; 22:15 Follow up: Response: No adverse reaction ha1 22:26 Drug: Acetaminophen-Codeine PO (300 mg-30 mg) 1 tablet PO once; RASS on ADMIN: Combtv4, ha1 Very Agttd3, Agttd2, Rstlss1, AlertClm0, Drwsy-1, Lt Sdtn-2, Mod Sdtn-3, Dp Sdtn-4, UnArsble-5 Route: PO; 23:55 Follow up: Response: No adverse reaction; Pain is decreased; RASS: Alert and Calm (0) ha1 23:55 Drug: Tetanus-Diphtheria Toxoid IM Adult 0.5 ml IM once; Provide Vaccine Information ha1 Statement (VIS). {Paleology Teacher: [employer]; Exp: ThuNov 25 2024; Lot #: [id number]; Series: 1 of 1; Patient Consent: Obtained; Date/Time: ; Source Name: Jose Tang; Source Relationship: Self; Address Information: [address] [place] [address]; ; Education: Provided; VIS Presented Date: ; VIS Publication: Tetanus/Diphtheria (Td) Vaccine VIS 10/14/2016 (historic)} Route: IM; Site: left deltoid; 07/30 00:17 Follow up: Response: (VIS) Vaccine information sheet provided today. Questions and/or ha1 concerns addressed. VIS edition date: Feb 08, 2021.; No adverse reaction Disposition Summary: 07/29/23 23:41 Discharge Ordered Problem: new sp4 Symptoms: have improved sp4 Condition: Stable sp4 Diagnosis - Facial Laceration/ Laceration without foreign body of cheek and temporomandibular sp4 area - Fall at Home, acute left frontotemporal laceration with arterial bleeding, acute sp4 closed head injury Followup: sp4 - With: Private Physician - When: 7 - 10 days - Reason: Recheck today's complaints Discharge Instructions: - Discharge Summary Sheet sp4 - Facial Laceration, [id number] sp4 Forms: - Patient Portal Instructions sp4 Prescriptions: - Tramadol 50 mg Oral tablet - take 1 tablet ORAL route every 8 hours as needed; 20 tablet; Refills: 0, sp4 Product Selection Permitted Signatures: Dispatcher [employer] Toshia Garibay FNP-C FNP-Becki Angelo, RN RN ha1 Perry Burr MD MD sp4 Violet Diamond RN RN km8
[2023-07-30 02:30] VITALS: TEMP 98.1
[2023-07-30 02:44] VITALS: BP 127/72; O2SAT 97
== END ==
LOC: ER 21:21
PROC: 0HQ1XZZ Repair Face Skin, External Approach (ICD-10-PCS; principal; 2023-07-29)
DX: S01.81XA Laceration without foreign body of other part of head, initial encounter (principal); S01.412A Laceration without foreign body of left cheek and temporomandibular area, initial encounter; W18.30XA Fall on same level, unspecified, initial encounter; Y92.009 Unspecified place in unspecified non-institutional (private) residence as the place of occurrence of the external cause; Z23 Encounter for immunization; I10 Essential (primary) hypertension
CPT/HCPCS: 70450; 72125; 90471